=== PATIENT | male | born 1940 | race African-American/Black ===

== ENCOUNTER → 2021-04-02 | Outpatient (CLI) | payer MEDICARE ==
[~2021-04-02] MED LIST: BARIUM SULFATE 176 GM SUSP.RECON ONE; EZ-HD SUSPENSION(BARIUM SULFATE 340GM) PO ONE
== END | disposition home or self-care (01) ==
LOC: RAD 09:44
PROVIDERS: ATTEND Internal Medicine Gastroenterology
DX: K22.5 Diverticulum of esophagus, acquired (principal); R19.2 Visible peristalsis; R13.10 Dysphagia, unspecified
CPT/HCPCS: 74220

== ENCOUNTER 2021-08-06 18:41 | Inpatient (IN) | payer MEDICARE ==
[~2021-08-06] VITALS: Ht 170.2 cm; Wt 54.0 kg
[2021-08-06] MEDS: ACETAMINOPHEN 325MG TABLET PO ONE ×2 (19:45→22:37)
[2021-08-06] MEDS ORDERED: PIPERACILLIN/TAZOBACTAM 3.375GM/50ML PREMIX IV ONE (19:45)
[2021-08-06] MEDS ORDERED: PIPERACILLIN/TAZ 3.375G PREMIX 50 ML IV NR (20:00)
[2021-08-06 20:43] LABS: HEMATOCRIT. 38.8 % (42.0-52.0); HEMOGLOBIN. 12.8 g/dL (14.0-18.0); MEAN CORPUSCULAR HEMOGLOBIN 36.2 pg (28.0-32.0); MEAN CORPUSCULAR VOLUME 110.1 fL (80.0-94.0); MEAN PLATELET VOLUME 6.1 fl (7.4-10.4); PLATELET 319 x1000/uL (130-400); RED BLOOD CELL COUNT 3.52 mill/uL (4.7-6.1); RED CELL DISTRIBUTION WIDTH 14.5 % (11.6-14.6)
[2021-08-06 20:52] LABS: CHLORIDE 108 mEq/L (98-107)
[2021-08-06 21:02] LABS: INR 1.1; PARTIAL THROMBOPLASTIN TIME 33.6 sec (23.4-31.0); PROTHROMBIN TIME 11.4 sec (9.6-11.0)
[2021-08-06] MEDS ORDERED: HYDRALAZINE 20MG/ML VIAL IV NR (21:45)
[2021-08-06 22:47] LABS: PLATELET ESTIMATE NORMAL
[2021-08-06] MEDS ORDERED: ACETAMINOPHEN 325MG TABLET PO PRN (23:30)
[2021-08-06] MEDS ORDERED: ONDANSETRON HCL 4MG/2ML INJ IV PRN (23:30)
[2021-08-06] MEDS ORDERED: CLONIDINE 0.1MG TABLET PO PRN (23:30)
[2021-08-06] MEDS ORDERED: ACETAMINOPHEN 650MG/20.3ML UDC GT PRN (23:30)
[2021-08-06] MEDS ORDERED: DIPHENHYDRAMINE 50MG/ML VIAL IV PRN (23:30)
[2021-08-06] MEDS ORDERED: IPRATROPIUM/ALBUTEROL 0.5-3(2.5)MG/3ML NEB HHN PRN (23:30)
[2021-08-06] MEDS ORDERED: DEXT 5%/0.45% NACL 1000ML 1,000 ML IV SCH (23:30)
[2021-08-06] MEDS ORDERED: MORPHINE SULFATE 2 MG/ML CPJ (NOT FOR IM USE) IV PRN (23:30)
[2021-08-07] VITALS (9 sets, daily range): BP systolic 122–165; BP diastolic 59–76
[2021-08-07] MEDS: CARBAMAZEPINE 200MG TABLET PO SCH ×3 (00:19→21:18)
[2021-08-07] MEDS: PIPERACILLIN/TAZ 3.375G PREMIX 50 ML IV SCH ×2 (06:36→14:00)
[2021-08-07] MEDS: DEXT 5%/0.45% NACL 1000ML 1,000 ML IV SCH ×2 (09:49→21:18)
[2021-08-07] MEDS: TAMSULOSIN HCL 0.4MG SR CAPSULE PO SCH (09:49)
[2021-08-07] MEDS ORDERED: IODIXANOL 320MG/ML 100 ML BOTTLE IV ONE ×2 (10:44→13:14)
[2021-08-07] MEDS ORDERED: LIDOCAINE HCL 1% 20ML VIAL (Pyxis) INJ ONE (10:44)
[2021-08-07] MEDS ORDERED: FAMOTIDINE 20MG/2ML VIAL IV ONE (12:15)
[2021-08-07] MEDS ORDERED: DIPHENHYDRAMINE 50MG/ML VIAL ONE (12:15)
[2021-08-07] MEDS ORDERED: HYDROCORTISONE SOD SUCCINATE 250 MG/2 ML VIAL ONE (12:18)
[2021-08-07] MEDS ORDERED: ONDANSETRON HCL 4MG/2ML INJ ONE (12:26)
[2021-08-07] MEDS ORDERED: FENTANYL CITRATE/PF 50MCG/ML 2ML VIAL ONE (12:33)
[2021-08-07] MEDS ORDERED: MIDAZOLAM HCL 2 MG/2 ML VIAL ONE (12:34)
[2021-08-07] MEDS ORDERED: IOHEXOL-300 100 ML BOTTLE ONE (13:10)
[2021-08-07] MEDS ORDERED: HEPARIN SODIUM 1,000 UNIT/1ML VIAL IV ONE (13:24)
[2021-08-07] MEDS ORDERED: HYDRALAZINE 20MG/ML VIAL ONE (14:13)
[2021-08-07] MEDS ORDERED: ONDANSETRON HCL 4MG/2ML INJ IV PRN (14:15)
[2021-08-07] MEDS ORDERED: ACETAMINOPHEN 325MG TABLET PO PRN (14:15)
[2021-08-07] MEDS ORDERED: ATROPINE SULFATE 1MG/10ML SYR IV PRN (14:15)
[2021-08-07] MEDS ORDERED: CLOPIDOGREL 75MG TABLET ONE (14:17)
[2021-08-07] MEDS ORDERED: ASPIRIN 325MG TABLET ONE (14:18)
[2021-08-07] MEDS ORDERED: DOXA1TAB2 PO (16:06)
[2021-08-07] MEDS ORDERED: TAMSULOSIN (16:06)
[2021-08-07] MEDS ORDERED: DULO20CA18 PO (16:06)
[2021-08-07] MEDS ORDERED: FLUT1BLS3 IH (16:06)
[2021-08-07] MEDS ORDERED: MONT10TA32 PO (16:06)
[2021-08-07] MEDS ORDERED: FLUT16SP15 (16:06)
[2021-08-07] MEDS ORDERED: AMLO10TA80 PO (16:06)
[2021-08-07] MEDS ORDERED: ALBUTEROL (0.5%) 2.5MG/0.5ML NEB HHN PRN (16:15)
[2021-08-07] MEDS ORDERED: NALOXONE HCL 0.4MG/ML VIAL IV PRN (16:30)
[2021-08-07] MEDS ORDERED: BUDESONIDE 0.5MG/2ML NEB HHN SCH (17:00)
[2021-08-07] MEDS: PIPERACILLIN/TAZOBACTAM 3.375G in DEXT 5% WATER 50ML IV SCH ×2 (17:32→23:55)
[2021-08-07] MEDS: FAMOTIDINE 20MG TABLET PO SCH (21:17)
[2021-08-08] VITALS (13 sets, daily range): BP systolic 121–173; BP diastolic 58–84
[2021-08-08] MEDS: PIPERACILLIN/TAZOBACTAM 3.375G in DEXT 5% WATER 50ML IV SCH ×3 (05:22→17:15)
[2021-08-08 06:48] LABS: BASOPHILS % 0.4 % (0.0-2.0); EOSINOPHILS % 0.4 % (0.0-5.0); HEMATOCRIT. 36.4 % (42.0-52.0); LYMPHOCYTES % 16.4 % (20.0-50.0); MEAN CORPUSCULAR HEMOGLOBIN 36.4 pg (28.0-32.0); MEAN CORPUSCULAR VOLUME 110.2 fL (80.0-94.0); MEAN PLATELET VOLUME 6.8 fl (7.4-10.4); MONOCYTES % 11.1 % (2.0-8.0); NEUTROPHILS % 71.7 % (40.0-76.0); PLATELET 299 x1000/uL (130-400); RED CELL DISTRIBUTION WIDTH 14.3 % (11.6-14.6)
[2021-08-08] MEDS: IPRATROPIUM/ALBUTEROL 0.5-3(2.5)MG/3ML NEB HHN SCH ×3 (07:36→16:00)
[2021-08-08 07:41] LABS: CHLORIDE 108 mEq/L (98-107)
[2021-08-08] MEDS: FLUTICASONE PROPIONATE 50MCG/SPRAY BOTTLE BOTHNSTRLS SCH ×3 (09:00→21:49)
[2021-08-08] MEDS: CARBAMAZEPINE 200MG TABLET PO SCH ×2 (09:12→21:49)
[2021-08-08] MEDS: ASPIRIN 325MG TABLET PO SCH (09:12)
[2021-08-08] MEDS: CLOPIDOGREL 75MG TABLET PO SCH (09:12)
[2021-08-08] MEDS: TAMSULOSIN HCL 0.4MG SR CAPSULE PO SCH (09:12)
[2021-08-08] MEDS: DEXT 5%/0.45% NACL 1000ML 1,000 ML IV SCH ×2 (10:30→22:09)
[2021-08-08] MEDS: FAMOTIDINE 20MG TABLET PO SCH (21:49)
[2021-08-09] VITALS (8 sets, daily range): BP systolic 127–168; BP diastolic 58–91
[2021-08-09] MEDS: PIPERACILLIN/TAZOBACTAM 3.375G in DEXT 5% WATER 50ML IV SCH (06:08)
[2021-08-09] MEDS: IPRATROPIUM/ALBUTEROL 0.5-3(2.5)MG/3ML NEB HHN SCH (06:34)
[2021-08-09 06:53] LABS: BASOPHILS % 0.6 % (0.0-2.0); EOSINOPHILS % 2.3 % (0.0-5.0); HEMATOCRIT. 33.4 % (42.0-52.0); HEMOGLOBIN. 11.5 g/dL (14.0-18.0); LYMPHOCYTES % 15.7 % (20.0-50.0); MEAN CORPUSCULAR HEMOGLOBIN 37.4 pg (28.0-32.0); MEAN CORPUSCULAR VOLUME 109.2 fL (80.0-94.0); MEAN PLATELET VOLUME 6.8 fl (7.4-10.4); MONOCYTES % 12.6 % (2.0-8.0); NEUTROPHILS % 68.8 % (40.0-76.0); PLATELET 284 x1000/uL (130-400); RED BLOOD CELL COUNT 3.06 mill/uL (4.7-6.1); RED CELL DISTRIBUTION WIDTH 13.9 % (11.6-14.6)
[2021-08-09 07:09] LABS: CHLORIDE 110 mEq/L (98-107)
[2021-08-09] MEDS: FLUTICASONE PROPIONATE 50MCG/SPRAY BOTTLE BOTHNSTRLS SCH (09:00)
[2021-08-09] MEDS: TAMSULOSIN HCL 0.4MG SR CAPSULE PO SCH (09:00)
[2021-08-09] MEDS: CARBAMAZEPINE 200MG TABLET PO SCH (09:10)
[2021-08-09] MEDS: ASPIRIN 325MG TABLET PO SCH (09:10)
[2021-08-09] MEDS: CLOPIDOGREL 75MG TABLET PO SCH (09:10)
== END 2021-08-09 10:50 | disposition home or self-care (01) | DRG 253 ==
LOC: ER 18:41 → MICUSO 20:59 → 3WST 08-07 14:31
PROVIDERS: ADMIT Internal Medicine; ATTEND Internal Medicine
PROC: 047H3DZ Dilation of Right External Iliac Artery with Intraluminal Device, Percutaneous Approach (ICD-10-PCS; principal; 2021-08-07)
PROC: 047 Lower Arteries, Dilation (ICD-10-PCS; 2021-08-07)
PROC: 047P3ZZ Dilation of Right Anterior Tibial Artery, Percutaneous Approach (ICD-10-PCS; 2021-08-07)
PROC: B41F1ZZ Fluoroscopy of Right Lower Extremity Arteries using Low Osmolar Contrast (ICD-10-PCS; 2021-08-07)
DX: I70.221 Atherosclerosis of native arteries of extremities with rest pain, right leg (principal); D84.9 Immunodeficiency, unspecified; Z68.1 Body mass index [BMI] 19.9 or less, adult; E44.1 Mild protein-calorie malnutrition; N40.0 Benign prostatic hyperplasia without lower urinary tract symptoms; L97.519 Non-pressure chronic ulcer of other part of right foot with unspecified severity; R74.01 Elevation of levels of liver transaminase levels; I10 Essential (primary) hypertension; Z20.822 Contact with and (suspected) exposure to COVID-19; G50.0 Trigeminal neuralgia; F17.200 Nicotine dependence, unspecified, uncomplicated; K52.832 Lymphocytic colitis; Z79.02 Long term (current) use of antithrombotics/antiplatelets; Z79.82 Long term (current) use of aspirin; Z82.3 Family history of stroke; Z89.431 Acquired absence of right foot; Z91.041 Radiographic dye allergy status; Z91.040 Latex allergy status; J44.9 Chronic obstructive pulmonary disease, unspecified
CPT/HCPCS: 36415; 37221; 37226; 37228; 71045; 73630; 75710; 80048; 80053; 83880; 84484; 85025; 85347; 86850; 86900; 87426; 87635; 93005; 93306; 93923; 94640; 99285; C1725; C1726; C1769; C1876; C1887; C1893; C1894; J0360; J1200; J1644; J1720; J2250; J2270; J2405; J2543; J3010; J3490; J7060; J7626; Q9967

== ENCOUNTER 2021-10-22 10:31 | Inpatient (IN) | payer MEDICARE ==
[~2021-10-22] VITALS: Ht 180.3 cm; Wt 54.1 kg
[2021-10-22] VITALS (11 sets, daily range): BP systolic 117–150; BP diastolic 43–89
[~2021-10-22 10:31] MED LIST changes: +AMLO10TA80 PO; -BARIUM SULFATE 176 GM SUSP.RECON ONE; +DOXA1TAB2 PO; +DULO20CA18 PO; -EZ-HD SUSPENSION(BARIUM SULFATE 340GM) PO ONE; +FLUT16SP15; +FLUT1BLS3 IH; +MONT10TA32 PO; +TAMSULOSIN
[2021-10-22] MEDS ORDERED: CARB100T49 PO (13:22)
[2021-10-22] MEDS ORDERED: ALBU6.7H15 INH (13:22)
[2021-10-22 13:37] LABS: MEAN CORPUSCULAR HEMOGLOBIN 25.7 pg (28.0-32.0); MEAN CORPUSCULAR VOLUME 82.5 fL (80.0-94.0); MEAN PLATELET VOLUME 7.8 fl (7.4-10.4); PLATELET 253 x1000/uL (130-400); RED BLOOD CELL COUNT 2.36 mill/uL (4.7-6.1); RED CELL DISTRIBUTION WIDTH 20.2 % (11.6-14.6)
[2021-10-22 13:47] LABS: PARTIAL THROMBOPLASTIN TIME 27.9 sec (23.4-31.0)
[2021-10-22 13:50] LABS: HEMOGLOBIN. 6.1 g/dL (14.0-18.0)
[2021-10-22 13:51] LABS: HEMATOCRIT. 19.5 % (42.0-52.0)
[2021-10-22 13:58] LABS: CHLORIDE 110 mEq/L (98-107)
[2021-10-22 14:08] LABS: T4 FREE 0.72 ng/dL (0.76-1.46)
[2021-10-22 14:21] LABS: NUCLEATED RED BLOOD CELLS 1 /100 WBC
[2021-10-22 14:22] LABS: PLATELET ESTIMATE NORMAL
[2021-10-22] MEDS ORDERED: FUROSEMIDE 40MG/4ML VIAL IVP ONE (14:45)
[2021-10-22 15:27] LABS: TOTAL IRON BINDING CAPACITY 346 ug/dL (250-450)
[2021-10-22] MEDS ORDERED: INFLUENZA VACCINE 05/PF 0.5 ML SYRINGE IM ONE (16:00)
[2021-10-22] MEDS: MONTELUKAST SODIUM 10MG TABLET PO SCH (17:00)
[2021-10-22] MEDS: AMLODIPINE 2.5MG TABLET PO SCH (18:00)
[2021-10-22] MEDS: FLUTICASONE PROPIONATE 50MCG/SPRAY BOTTLE BOTHNSTRLS SCH (20:46)
[2021-10-23 00:22] VITALS: BP 156/76
[2021-10-23 03:47] LABS: HEMATOCRIT 31.1 % (42.0-52.0); HEMOGLOBIN 9.8 g/dL (14.0-18.0)
[2021-10-23 04:00] VITALS: BP_SYST 166; BP_SYST 168; BP_DIAS 58
[2021-10-23] MEDS: CARBAMAZEPINE 200MG TABLET PO SCH ×2 (05:26→17:10)
[2021-10-23] MEDS: AMLODIPINE 2.5MG TABLET PO SCH ×2 (05:27→17:10)
[2021-10-23 07:07] LABS: HEMATOCRIT. 29.6 % (42.0-52.0); HEMOGLOBIN. 9.4 g/dL (14.0-18.0); MEAN CORPUSCULAR HEMOGLOBIN 26.3 pg (28.0-32.0); MEAN CORPUSCULAR VOLUME 82.8 fL (80.0-94.0); PLATELET 235 x1000/uL (130-400); RED BLOOD CELL COUNT 3.57 mill/uL (4.7-6.1); RED CELL DISTRIBUTION WIDTH 17.4 % (11.6-14.6)
[2021-10-23 07:10] LABS: CHLORIDE 107 mEq/L (98-107)
[2021-10-23 08:00] VITALS: BP 125/76
[2021-10-23] MEDS ORDERED: AMLODIPINE 10MG TABLET PO SCH (09:00)
[2021-10-23] MEDS: SILVER SULFADIAZINE 1% CREAM 25GM TOP SCH (09:20)
[2021-10-23] MEDS: FLUTICASONE PROPIONATE 50MCG/SPRAY BOTTLE BOTHNSTRLS SCH ×2 (09:21→21:00)
[2021-10-23] MEDS: TAMSULOSIN HCL 0.4MG SR CAPSULE PO SCH (09:22)
[2021-10-23 09:40] LABS: BG BASE EXCESS -0.8 mmol/L (-2.0-2.0); BG CARBOXYHEMOGLOBIN 0.3 % (0.5-1.5); BG DEOXYHEMOGLOBIN 2.6 % (0.0-5.0); BG FRACTION INSPIRED OXYGEN 34; BG HCO3 ACT 24.9 mmol/L (22.0-26.0); BG METHEMOGLOBIN 0.2 % (0.0-1.5); BG OXYGEN SATURATION 97.4 % (92.0-98.5); BG OXYHEMOGLOBIN 96.9 % (94.0-97.0); BG PCO2 45.9 mmHg (35.0-45.0); BG PH 7.352 (7.350-7.450); BG PO2 102.5 mmHg (75.0-100.0); BG SAMPLE SITE RIGHT RADIAL; BG VENT MODE NASAL CANNULA
[2021-10-23] MEDS ORDERED: FUROSEMIDE 40MG/4ML VIAL IV SCH (09:45)
[2021-10-23 12:00] VITALS: BP 106/67
[2021-10-23 13:29] LABS: PLATELET ESTIMATE NORMAL
[2021-10-23 16:00] VITALS: BP 137/62
[2021-10-23] MEDS: MONTELUKAST SODIUM 10MG TABLET PO SCH (17:10)
[2021-10-23] MEDS: DOCUSATE SODIUM 100MG CAPSULE PO SCH (17:10)
[2021-10-23] MEDS: MULTIVITAMINS,THER W-MINERALS TABLET PO SCH (17:11)
[2021-10-23] MEDS: POLYETHYLENE GLYCOL 3350 (17GM) 1 DOSE PACK PO SCH (17:11)
[2021-10-23] MEDS: IRON SUCROSE COMPLEX 100 MG/5 ML ML IV SCH (17:11)
[2021-10-23 20:00] VITALS: BP 114/45
[2021-10-24] VITALS: BP 116/63
[2021-10-24 04:00] VITALS: BP 129/58
[2021-10-24] MEDS: AMLODIPINE 2.5MG TABLET PO SCH ×2 (06:00→17:43)
[2021-10-24] MEDS: CARBAMAZEPINE 200MG TABLET PO SCH ×2 (06:20→17:04)
[2021-10-24 06:55] LABS: BASOPHILS % 0.4 % (0.0-2.0); EOSINOPHILS % 9.2 % (0.0-5.0); HEMATOCRIT. 26.4 % (42.0-52.0); HEMOGLOBIN. 8.5 g/dL (14.0-18.0); LYMPHOCYTES % 14.1 % (20.0-50.0); MEAN CORPUSCULAR HEMOGLOBIN 26.4 pg (28.0-32.0); MEAN CORPUSCULAR VOLUME 82.2 fL (80.0-94.0); MONOCYTES % 9.5 % (2.0-8.0); NEUTROPHILS % 66.8 % (40.0-76.0); PLATELET 191 x1000/uL (130-400); RED BLOOD CELL COUNT 3.22 mill/uL (4.7-6.1); RED CELL DISTRIBUTION WIDTH 18.1 % (11.6-14.6)
[2021-10-24 07:27] LABS: CHLORIDE 109 mEq/L (98-107)
[2021-10-24 08:00] VITALS: BP 122/49
[2021-10-24] MEDS: DOCUSATE SODIUM 100MG CAPSULE PO SCH ×2 (09:00→17:00)
[2021-10-24] MEDS: POLYETHYLENE GLYCOL 3350 (17GM) 1 DOSE PACK PO SCH (09:00)
[2021-10-24] MEDS: MULTIVITAMINS,THER W-MINERALS TABLET PO SCH (09:44)
[2021-10-24] MEDS: FERROUS SULFATE 325MG TABLET PO SCH (09:44)
[2021-10-24] MEDS: TAMSULOSIN HCL 0.4MG SR CAPSULE PO SCH (09:44)
[2021-10-24] MEDS: SILVER SULFADIAZINE 1% CREAM 25GM TOP SCH (09:46)
[2021-10-24] MEDS ORDERED: FLUTICASONE PROPIONATE 50MCG/SPRAY BOTTLE BOTHNSTRLS SCH (11:00)
[2021-10-24] MEDS: PHENYLEPHRINE HCL 1% 15 ML NASAL SPRAY BOTHNSTRLS SCH ×2 (11:31→17:09)
[2021-10-24] MEDS: SODIUM CHLORIDE 45ML SPRAY NS SCH ×3 (11:31→21:10)
[2021-10-24 12:00] VITALS: BP 111/44
[2021-10-24 16:00] VITALS: BP 121/55
[2021-10-24] MEDS: MONTELUKAST SODIUM 10MG TABLET PO SCH (17:04)
[2021-10-24] MEDS: IRON SUCROSE COMPLEX 100 MG/5 ML ML IV SCH ×2 (17:04→17:53)
[2021-10-24 20:00] VITALS: BP 106/48
[2021-10-25] VITALS: BP 129/46
[2021-10-25] MEDS: SODIUM CHLORIDE 45ML SPRAY NS SCH ×6 (00:36→20:31)
[2021-10-25] MEDS: PHENYLEPHRINE HCL 1% 15 ML NASAL SPRAY BOTHNSTRLS SCH ×4 (00:36→17:25)
[2021-10-25 04:10] VITALS: BP 114/50
[2021-10-25] MEDS: AMLODIPINE 2.5MG TABLET PO SCH ×2 (06:00→17:25)
[2021-10-25 08:00] VITALS: BP 125/71
[2021-10-25] MEDS: POLYETHYLENE GLYCOL 3350 (17GM) 1 DOSE PACK PO SCH (09:00)
[2021-10-25] MEDS: DOCUSATE SODIUM 100MG CAPSULE PO SCH ×2 (09:00→17:00)
[2021-10-25] MEDS: CARBAMAZEPINE 200MG TABLET PO SCH ×2 (09:29→17:25)
[2021-10-25] MEDS: MULTIVITAMINS,THER W-MINERALS TABLET PO SCH (09:29)
[2021-10-25] MEDS: FERROUS SULFATE 325MG TABLET PO SCH (09:29)
[2021-10-25] MEDS: SILVER SULFADIAZINE 1% CREAM 25GM TOP SCH (09:30)
[2021-10-25] MEDS: TAMSULOSIN HCL 0.4MG SR CAPSULE PO SCH (09:30)
[2021-10-25] MEDS: FLUTICASONE PROPIONATE 50MCG/SPRAY BOTTLE BOTHNSTRLS SCH (09:31)
[2021-10-25 12:00] VITALS: BP 115/41
[2021-10-25 16:00] VITALS: BP 117/61
[2021-10-25] MEDS: MONTELUKAST SODIUM 10MG TABLET PO SCH (17:25)
[2021-10-25] MEDS: IRON SUCROSE COMPLEX 100 MG/5 ML ML IV SCH (17:26)
[2021-10-25] MEDS ORDERED: PREDNISONE 20MG TABLET PO NR (19:00)
[2021-10-25 20:00] VITALS: BP 149/59
[2021-10-26] VITALS: BP 134/40
[2021-10-26] MEDS: SODIUM CHLORIDE 45ML SPRAY NS SCH ×7 (00:19→23:18)
[2021-10-26] MEDS: PHENYLEPHRINE HCL 1% 15 ML NASAL SPRAY BOTHNSTRLS SCH ×5 (00:19→23:18)
[2021-10-26] MEDS ORDERED: PREDNISONE 20MG TABLET PO NR ×2 (01:00→07:00)
[2021-10-26 04:00] VITALS: BP 118/58
[2021-10-26] MEDS: AMLODIPINE 2.5MG TABLET PO SCH ×2 (06:00→18:00)
[2021-10-26 06:12] LABS: BASOPHILS % 0.1 % (0.0-2.0); EOSINOPHILS % 0.1 % (0.0-5.0); HEMATOCRIT. 28.1 % (42.0-52.0); HEMOGLOBIN. 8.8 g/dL (14.0-18.0); LYMPHOCYTES % 9.5 % (20.0-50.0); MEAN CORPUSCULAR HEMOGLOBIN 26.5 pg (28.0-32.0); MEAN PLATELET VOLUME 8.5 fl (7.4-10.4); MONOCYTES % 1.4 % (2.0-8.0); NEUTROPHILS % 88.9 % (40.0-76.0); PLATELET 205 x1000/uL (130-400)
[2021-10-26 06:16] LABS: CHLORIDE 105 mEq/L (98-107)
[2021-10-26] MEDS ORDERED: DIPHENHYDRAMINE 50MG CAPSULE PO NR (07:00)
[2021-10-26] MEDS ORDERED: BARIUM SULFATE(VOLUMEN) 450 ML ORAL.SUSP ONE (08:10)
[2021-10-26] MEDS: POLYETHYLENE GLYCOL 3350 (17GM) 1 DOSE PACK PO SCH (09:00)
[2021-10-26] MEDS: DOCUSATE SODIUM 100MG CAPSULE PO SCH ×2 (09:00→17:00)
[2021-10-26] MEDS ORDERED: IOHEXOL-350 100 ML BOTTLE ONE (09:09)
[2021-10-26 10:00] VITALS: BP 131/55
[2021-10-26] MEDS: FERROUS SULFATE 325MG TABLET PO SCH (11:16)
[2021-10-26] MEDS: CARBAMAZEPINE 200MG TABLET PO SCH ×2 (11:16→18:20)
[2021-10-26] MEDS: MULTIVITAMINS,THER W-MINERALS TABLET PO SCH (11:16)
[2021-10-26] MEDS: TAMSULOSIN HCL 0.4MG SR CAPSULE PO SCH (11:17)
[2021-10-26] MEDS: FLUTICASONE PROPIONATE 50MCG/SPRAY BOTTLE BOTHNSTRLS SCH (11:18)
[2021-10-26] MEDS: SILVER SULFADIAZINE 1% CREAM 25GM TOP SCH (11:25)
[2021-10-26 12:00] VITALS: BP 129/47
[2021-10-26 16:00] VITALS: BP 141/56
[2021-10-26] MEDS: IRON SUCROSE COMPLEX 100 MG/5 ML ML IV SCH (16:55)
[2021-10-26] MEDS: MONTELUKAST SODIUM 10MG TABLET PO SCH (18:20)
[2021-10-26 20:00] VITALS: BP 120/48
[2021-10-27] VITALS: BP 131/52
[2021-10-27 04:00] VITALS: BP 141/79
[2021-10-27] MEDS: SODIUM CHLORIDE 45ML SPRAY NS SCH ×2 (04:24→09:38)
[2021-10-27] MEDS: CARBAMAZEPINE 200MG TABLET PO SCH (05:40)
[2021-10-27] MEDS: PHENYLEPHRINE HCL 1% 15 ML NASAL SPRAY BOTHNSTRLS SCH (05:40)
[2021-10-27] MEDS: AMLODIPINE 2.5MG TABLET PO SCH ×2 (05:41→05:51)
[2021-10-27 05:52] LABS: BASOPHILS % 0.6 % (0.0-2.0); EOSINOPHILS % 3.1 % (0.0-5.0); HEMATOCRIT. 26.6 % (42.0-52.0); HEMOGLOBIN. 8.2 g/dL (14.0-18.0); LYMPHOCYTES % 19.2 % (20.0-50.0); MEAN CORPUSCULAR HEMOGLOBIN 26.5 pg (28.0-32.0); MEAN CORPUSCULAR VOLUME 86.4 fL (80.0-94.0); MEAN PLATELET VOLUME 8.6 fl (7.4-10.4); MONOCYTES % 9.7 % (2.0-8.0); NEUTROPHILS % 67.4 % (40.0-76.0); PLATELET 207 x1000/uL (130-400); RED BLOOD CELL COUNT 3.08 mill/uL (4.7-6.1); RED CELL DISTRIBUTION WIDTH 18.7 % (11.6-14.6)
[2021-10-27 06:11] LABS: CHLORIDE 107 mEq/L (98-107)
[2021-10-27 08:00] VITALS: BP 151/38
[2021-10-27] MEDS: TAMSULOSIN HCL 0.4MG SR CAPSULE PO SCH (09:00)
[2021-10-27] MEDS: POLYETHYLENE GLYCOL 3350 (17GM) 1 DOSE PACK PO SCH (09:00)
[2021-10-27] MEDS: DOCUSATE SODIUM 100MG CAPSULE PO SCH (09:00)
[2021-10-27] MEDS: MULTIVITAMINS,THER W-MINERALS TABLET PO SCH (09:00)
[2021-10-27] MEDS: FERROUS SULFATE 325MG TABLET PO SCH (09:37)
[2021-10-27] MEDS: FLUTICASONE PROPIONATE 50MCG/SPRAY BOTTLE BOTHNSTRLS SCH (09:39)
[2021-10-27] MEDS: SILVER SULFADIAZINE 1% CREAM 25GM TOP SCH (09:42)
[2021-10-27] MEDS ORDERED: ASCORBIC ACID 500 MG TABLET PO SCH (09:45)
[2021-10-27 10:52] VITALS: BP 151/58
[2021-10-27] MEDS ORDERED: FERROUS SULFATE 325MG TABLET PO SCH (17:00)
[2021-11-12] MEDS ORDERED: TAMS-11 PO (12:40)
[2021-11-12] MEDS ORDERED: CARB200T MT (16:42)
== END 2021-10-27 11:38 | disposition home or self-care (01) | DRG 812 ==
LOC: 7EST 11:01
PROVIDERS: ADMIT Specialist; ATTEND Specialist
PROC: 30233N1 Transfusion of Nonautologous Red Blood Cells into Peripheral Vein, Percutaneous Approach (ICD-10-PCS; principal; 2021-10-22)
DX: D50.9 Iron deficiency anemia, unspecified (principal); D84.9 Immunodeficiency, unspecified; Z68.1 Body mass index [BMI] 19.9 or less, adult; E44.1 Mild protein-calorie malnutrition; C61 Malignant neoplasm of prostate; I73.9 Peripheral vascular disease, unspecified; G50.0 Trigeminal neuralgia; R63.4 Abnormal weight loss; R91.1 Solitary pulmonary nodule; R33.9 Retention of urine, unspecified; I10 Essential (primary) hypertension; I27.21 Secondary pulmonary arterial hypertension; F17.210 Nicotine dependence, cigarettes, uncomplicated; J31.0 Chronic rhinitis; L27.0 Generalized skin eruption due to drugs and medicaments taken internally; L97.529 Non-pressure chronic ulcer of other part of left foot with unspecified severity; N40.0 Benign prostatic hyperplasia without lower urinary tract symptoms; T65.811A Toxic effect of latex, accidental (unintentional), initial encounter; T50.8X5A Adverse effect of diagnostic agents, initial encounter; Z20.822 Contact with and (suspected) exposure to COVID-19; J43.9 Emphysema, unspecified; K52.9 Noninfective gastroenteritis and colitis, unspecified; I49.3 Ventricular premature depolarization; K59.00 Constipation, unspecified; Z99.3 Dependence on wheelchair; Z82.3 Family history of stroke; Z82.49 Family history of ischemic heart disease and other diseases of the circulatory system; Z79.899 Other long term (current) drug therapy; Z79.82 Long term (current) use of aspirin; Z79.02 Long term (current) use of antithrombotics/antiplatelets; Z91.041 Radiographic dye allergy status; Y92.89 Other specified places as the place of occurrence of the external cause; J42 Unspecified chronic bronchitis; Z71.6 Tobacco abuse counseling; I34.0 Nonrheumatic mitral (valve) insufficiency; Q27.33 Arteriovenous malformation of digestive system vessel; K29.70 Gastritis, unspecified, without bleeding; K57.90 Diverticulosis of intestine, part unspecified, without perforation or abscess without bleeding
CPT/HCPCS: 36415; 36600; 71045; 74177; 80048; 80053; 82270; 82375; 82607; 82728; 82746; 82805; 83540; 83550; 83735; 84153; 84439; 84443; 84484; 85014; 85018; 85025; 85044; 86850; 86900; 86920; 87426; 93005; C1893; J1940; J7040; J7512; P9016; Q0163; Q9967; G0103

== ENCOUNTER → 2022-08-14 | Outpatient (CLI) | payer MEDICARE ==
[~2022-08-14] MED LIST changes: +ALBU6.7H15 INH; -AMLO10TA80 PO; +CARB100T49 PO; +CARB200T MT; +MONT-39 PO; -MONT10TA32 PO; +TAMS-11 PO; -TAMSULOSIN
[2022-08-14 11:49] LABS: BG BASE EXCESS 7.6 mmol/L (-2.0-2.0); BG CARBOXYHEMOGLOBIN 0.6 % (0.5-1.5); BG FRACTION INSPIRED OXYGEN 21; BG HCO3 ACT 31.9 mmol/L (22.0-26.0); BG METHEMOGLOBIN 0.3 % (0.0-1.5); BG OXYGEN SATURATION 91.9 % (92.0-98.5); BG OXYHEMOGLOBIN 91.1 % (94.0-97.0); BG PCO2 43.9 mmHg (35.0-45.0); BG PH 7.479 (7.350-7.450); BG PO2 59.2 mmHg (75.0-100.0); BG SAMPLE SITE RIGHT RADIAL; BG VENT MODE ROOM AIR
== END | disposition home or self-care (01) ==
LOC: LAB 11:11
PROVIDERS: ATTEND Specialist
DX: J96.10 Chronic respiratory failure, unspecified whether with hypoxia or hypercapnia (principal)
CPT/HCPCS: 36600; 82375; 82805

== ENCOUNTER 2022-10-23 10:07 | Inpatient (IN) | payer MEDICARE ==
[2022-10-23] VITALS (9 sets, daily range): BP systolic 99–152; BP diastolic 50–75
[~2022-10-23] VITALS: Ht 172.7 cm; Wt 59.9 kg
[2022-10-23] MEDS ORDERED: IPRATROPIUM BROMIDE (0.02%) 0.5MG/2.5ML NEB HHN STA (10:34)
[2022-10-23] MEDS ORDERED: METHYLPREDNISOLONE SOD SUCC 125 MG/2 ML VIAL IV STA (10:34)
[2022-10-23] MEDS ORDERED: LIDOCAINE HCL/PF 1% 2ML VIAL ONE (10:34)
[2022-10-23] MEDS ORDERED: ALBUTEROL (0.083%) 2.5MG/3ML NEB HHN STA (10:34)
[2022-10-23] MEDS ORDERED: FUROSEMIDE 40MG/4ML VIAL IV ONE (10:45)
[2022-10-23 11:36] LABS: BASOPHILS % 1.3 % (0.0-2.0); EOSINOPHILS % 4.1 % (0.0-5.0); LYMPHOCYTES % 20.3 % (20.0-50.0); MEAN CORPUSCULAR HEMOGLOBIN 24.2 pg (28.0-32.0); MEAN CORPUSCULAR VOLUME 81.1 fL (80.0-94.0); MEAN PLATELET VOLUME 7.8 fl (7.4-10.4); MONOCYTES % 8.5 % (2.0-8.0); NEUTROPHILS % 65.8 % (40.0-76.0); PLATELET 275 x1000/uL (130-400); RED BLOOD CELL COUNT 2.76 mill/uL (4.7-6.1); RED CELL DISTRIBUTION WIDTH 26.3 % (11.6-14.6)
[2022-10-23 11:38] LABS: CHLORIDE 101 mEq/L (98-107); HEMATOCRIT. 22.4 % (42.0-52.0); HEMOGLOBIN. 6.7 g/dL (14.0-18.0)
[2022-10-23 11:42] LABS: BG BASE EXCESS 5.5 mmol/L (-2.0-2.0); BG CARBOXYHEMOGLOBIN 2.1 % (0.5-1.5); BG DEOXYHEMOGLOBIN 0.1 % (0.0-5.0); BG FRACTION INSPIRED OXYGEN 60; BG HCO3 ACT 32.9 mmol/L (22.0-26.0); BG METHEMOGLOBIN 0.5 % (0.0-1.5); BG OXYGEN SATURATION 99.9 % (92.0-98.5); BG OXYHEMOGLOBIN 97.3 % (94.0-97.0); BG PCO2 70.2 mmHg (35.0-45.0); BG PH 7.289 (7.350-7.450); BG PO2 195.7 mmHg (75.0-100.0); BG SAMPLE SITE LEFT RADIAL; BG TOTAL HEMOGLOBIN 7.3 g/dL (12.0-18.0); BG VENT MODE HHN TX
[2022-10-23 11:50] LABS: INR 1.1; PARTIAL THROMBOPLASTIN TIME 30.8 sec (23.4-31.0); PROTHROMBIN TIME 11.8 sec (9.6-11.0)
[2022-10-23] MEDS ORDERED: AZITHROMYCIN 500MG/250ML 250 ML IV ONE (12:00)
[2022-10-23] MEDS ORDERED: CEFTRIAXONE 1GM PREMIX 50 ML IV ONE (12:00)
[2022-10-23] MEDS ORDERED: DIPHENHYDRAMINE 50MG/ML VIAL IV PRN (12:30)
[2022-10-23] MEDS ORDERED: ACETAMINOPHEN 325MG TABLET PO PRN (12:30)
[2022-10-23] MEDS ORDERED: FUROSEMIDE 40MG/4ML VIAL IVP NR ×2 (12:30→13:30)
[2022-10-23] MEDS ORDERED: ONDANSETRON HCL 4MG/2ML INJ IV PRN (12:30)
[2022-10-23] MEDS ORDERED: CLONIDINE 0.1MG TABLET PO PRN (12:30)
[2022-10-23] MEDS ORDERED: IPRATROPIUM/ALBUTEROL 0.5-3(2.5)MG/3ML NEB HHN PRN (12:30)
[2022-10-23 13:04] LABS: PLATELET ESTIMATE NORMAL
[2022-10-23] MEDS ORDERED: AZITHROMYCIN 500 MG in DEXT 5% WATER 250 ML IV SCH (14:00)
[2022-10-23] MEDS ORDERED: PANTOPRAZOLE SODIUM 40 MG/VIAL IV SCH (14:00)
[2022-10-23 16:04] LABS: TOTAL IRON BINDING CAPACITY 346 ug/dL (250-450)
[2022-10-23] MEDS ORDERED: FUROSEMIDE 40MG/4ML VIAL IV SCH (17:00)
[2022-10-23] MEDS: IPRATROPIUM/ALBUTEROL 0.5-3(2.5)MG/3ML NEB HHN SCH ×2 (17:55→21:51)
[2022-10-23] MEDS: METHYLPREDNISOLONE SOD SUCC 40 MG/ML VIAL IV SCH (18:50)
[2022-10-23] MEDS: PANTOPRAZOLE SODIUM 40 MG/VIAL IV SCH (18:50)
[2022-10-23 19:05] LABS: FOLIC ACID (FOLATE) SERUM 15.5 ng/mL (>5.38)
[2022-10-23] MEDS: FUROSEMIDE 40MG/4ML VIAL IVP SCH (20:37)
[2022-10-23] MEDS: CARVEDILOL 6.25 MG TABLET PO SCH (20:37)
[2022-10-24] VITALS (15 sets, daily range): BP systolic 100–139; BP diastolic 45–75
[2022-10-24] MEDS: IPRATROPIUM/ALBUTEROL 0.5-3(2.5)MG/3ML NEB HHN SCH ×4 (01:42→20:42)
[2022-10-24] MEDS: AZITHROMYCIN 500 MG in DEXT 5% WATER 250 ML IV SCH ×2 (02:36→20:29)
[2022-10-24] MEDS: PANTOPRAZOLE SODIUM 40 MG/VIAL IV SCH ×2 (03:56→16:51)
[2022-10-24 06:36] LABS: HEMATOCRIT. 23.3 % (42.0-52.0); HEMOGLOBIN. 7.3 g/dL (14.0-18.0); MEAN CORPUSCULAR HEMOGLOBIN 25.3 pg (28.0-32.0); MEAN CORPUSCULAR VOLUME 80.9 fL (80.0-94.0); PLATELET 222 x1000/uL (130-400); RED BLOOD CELL COUNT 2.88 mill/uL (4.7-6.1); RED CELL DISTRIBUTION WIDTH 23.5 % (11.6-14.6)
[2022-10-24 07:00] LABS: CHLORIDE 100 mEq/L (98-107)
[2022-10-24 07:10] LABS: PHOSPHORUS 4.1 mg/dL (2.5-4.9)
[2022-10-24 08:06] LABS: BG BASE EXCESS 8.4 mmol/L (-2.0-2.0); BG CARBOXYHEMOGLOBIN 0.7 % (0.5-1.5); BG DEOXYHEMOGLOBIN 0.5 % (0.0-5.0); BG HCO3 ACT 35.2 mmol/L (22.0-26.0); BG METHEMOGLOBIN 0.5 % (0.0-1.5); BG OXYGEN SATURATION 99.5 % (92.0-98.5); BG OXYHEMOGLOBIN 98.3 % (94.0-97.0); BG PCO2 66.2 mmHg (35.0-45.0); BG PH 7.344 (7.350-7.450); BG PO2 169.4 mmHg (75.0-100.0); BG TOTAL HEMOGLOBIN 7.6 g/dL (12.0-18.0); BG VENT MODE MASK - BIPAP
[2022-10-24 08:44] LABS: NUCLEATED RED BLOOD CELLS 1 /100 WBC; PLATELET ESTIMATE NORMAL
[2022-10-24] MEDS: CARVEDILOL 6.25 MG TABLET PO SCH ×2 (10:17→20:30)
[2022-10-24] MEDS: FUROSEMIDE 40MG/4ML VIAL IVP SCH ×2 (10:18→20:29)
[2022-10-24] MEDS: METHYLPREDNISOLONE SOD SUCC 40 MG/ML VIAL IV SCH ×2 (10:18→16:51)
[2022-10-24] MEDS ORDERED: LIDOCAINE HCL/PF 1% 2ML VIAL ONE (11:30)
[2022-10-24] MEDS ORDERED: CEFTRIAXONE 1GM PREMIX 50 ML IV SCH (12:00)
[2022-10-24] MEDS: CEFTRIAXONE 1GM PREMIX 50 ML IV SCH (12:46)
[2022-10-25] VITALS (22 sets, daily range): BP systolic 110–152; BP diastolic 49–88
[2022-10-25] MEDS: IPRATROPIUM/ALBUTEROL 0.5-3(2.5)MG/3ML NEB HHN SCH ×4 (02:28→21:20)
[2022-10-25] MEDS: PANTOPRAZOLE SODIUM 40 MG/VIAL IV SCH ×2 (04:00→16:00)
[2022-10-25 06:04] LABS: HEMATOCRIT. 26.3 % (42.0-52.0); HEMOGLOBIN. 8.3 g/dL (14.0-18.0); MEAN CORPUSCULAR VOLUME 82.6 fL (80.0-94.0); MEAN PLATELET VOLUME 8.2 fl (7.4-10.4); PLATELET 237 x1000/uL (130-400); RED BLOOD CELL COUNT 3.19 mill/uL (4.7-6.1); RED CELL DISTRIBUTION WIDTH 24.1 % (11.6-14.6)
[2022-10-25 08:38] LABS: BG BASE EXCESS 13.7 mmol/L (-2.0-2.0); BG CARBOXYHEMOGLOBIN 0.4 % (0.5-1.5); BG DEOXYHEMOGLOBIN 1.4 % (0.0-5.0); BG FRACTION INSPIRED OXYGEN 50; BG HCO3 ACT 40.6 mmol/L (22.0-26.0); BG METHEMOGLOBIN 0.3 % (0.0-1.5); BG OXYGEN SATURATION 98.6 % (92.0-98.5); BG OXYHEMOGLOBIN 97.9 % (94.0-97.0); BG PCO2 70.6 mmHg (35.0-45.0); BG PH 7.378 (7.350-7.450); BG PO2 127.5 mmHg (75.0-100.0); BG SAMPLE SITE LEFT RADIAL; BG TOTAL HEMOGLOBIN 7.9 g/dL (12.0-18.0); BG TOTAL RESPIRATORY RATE 25 b/min; BG VENT MODE MASK - BIPAP
[2022-10-25] MEDS: CARVEDILOL 6.25 MG TABLET PO SCH ×2 (08:48→21:15)
[2022-10-25] MEDS: FUROSEMIDE 40MG/4ML VIAL IVP SCH ×2 (08:49→21:15)
[2022-10-25] MEDS: METHYLPREDNISOLONE SOD SUCC 40 MG/ML VIAL IV SCH ×2 (08:49→16:00)
[2022-10-25 09:31] LABS: CHLORIDE 101 mEq/L (98-107)
[2022-10-25 10:01] LABS: PLATELET ESTIMATE NORMAL
[2022-10-25] MEDS: CEFTRIAXONE 1GM PREMIX 50 ML IV SCH (12:49)
[2022-10-25] MEDS: AZITHROMYCIN 500 MG in DEXT 5% WATER 250 ML IV SCH (21:15)
[2022-10-26] VITALS (15 sets, daily range): BP systolic 91–134; BP diastolic 54–76
[2022-10-26] MEDS: IPRATROPIUM/ALBUTEROL 0.5-3(2.5)MG/3ML NEB HHN SCH ×3 (02:54→20:30)
[2022-10-26] MEDS: PANTOPRAZOLE SODIUM 40 MG/VIAL IV SCH ×2 (04:28→16:00)
[2022-10-26 04:39] LABS: HEMATOCRIT. 23.9 % (42.0-52.0); HEMOGLOBIN. 7.4 g/dL (14.0-18.0); MEAN CORPUSCULAR HEMOGLOBIN 25.6 pg (28.0-32.0); MEAN CORPUSCULAR VOLUME 82.2 fL (80.0-94.0); MEAN PLATELET VOLUME 7.8 fl (7.4-10.4); PLATELET 233 x1000/uL (130-400); RED BLOOD CELL COUNT 2.91 mill/uL (4.7-6.1); RED CELL DISTRIBUTION WIDTH 24.8 % (11.6-14.6)
[2022-10-26 04:50] LABS: CHLORIDE 98 mEq/L (98-107)
[2022-10-26 05:01] LABS: PHOSPHORUS 2.9 mg/dL (2.5-4.9)
[2022-10-26] MEDS ORDERED: MAGNESIUM 1 G PREMIX 100 ML IV NR (07:00)
[2022-10-26 08:24] LABS: BG BASE EXCESS 16.1 mmol/L (-2.0-2.0); BG CARBOXYHEMOGLOBIN 0.1 % (0.5-1.5); BG DEOXYHEMOGLOBIN 3.4 % (0.0-5.0); BG FRACTION INSPIRED OXYGEN 44; BG HCO3 ACT 43.2 mmol/L (22.0-26.0); BG METHEMOGLOBIN 1.2 % (0.0-1.5); BG OXYGEN SATURATION 96.6 % (92.0-98.5); BG OXYHEMOGLOBIN 95.3 % (94.0-97.0); BG PCO2 73.1 mmHg (35.0-45.0); BG PH 7.389 (7.350-7.450); BG TOTAL HEMOGLOBIN 8.2 g/dL (12.0-18.0); BG VENT MODE NASAL CANNULA
[2022-10-26] MEDS: FUROSEMIDE 40MG/4ML VIAL IVP SCH ×2 (08:34→22:26)
[2022-10-26] MEDS: CARVEDILOL 6.25 MG TABLET PO SCH ×2 (08:35→22:26)
[2022-10-26] MEDS: METHYLPREDNISOLONE SOD SUCC 40 MG/ML VIAL IV SCH (08:35)
[2022-10-26 11:56] LABS: PLATELET ESTIMATE NORMAL
[2022-10-26] MEDS: CEFTRIAXONE 1GM PREMIX 50 ML IV SCH (12:00)
[2022-10-26] MEDS: IRON SUCROSE COMPLEX 100 MG/5 ML ML IV SCH (12:30)
[2022-10-26] MEDS ORDERED: ALBUTEROL (0.083%) 2.5MG/3ML NEB HHN PRN (14:00)
[2022-10-26] MEDS ORDERED: IPRATROPIUM BROMIDE (0.02%) 0.5MG/2.5ML NEB HHN SCH (14:00)
[2022-10-26] MEDS ORDERED: IPRATROPIUM BROMIDE (0.02%) 0.5MG/2.5ML NEB HHN PRN (14:00)
[2022-10-26] MEDS ORDERED: ALBUTEROL (0.083%) 2.5MG/3ML NEB HHN SCH (14:00)
[2022-10-26] MEDS ORDERED: THROAT LOZENGES-BENZOCAINE/MENTH/CETYLPYRD CL LOZENGES MM PRN (14:30)
[2022-10-26] MEDS ORDERED: IPRATROPIUM/ALBUTEROL 0.5-3(2.5)MG/3ML NEB HHN PRN (15:30)
[2022-10-26] MEDS ORDERED: THROAT LOZENGES-BENZOCAINE/MENTH/CETYLPYRD CL LOZENGES MM SCH (16:00)
[2022-10-26] MEDS ORDERED: METHYLPREDNISOLONE SOD SUCC 40 MG/ML VIAL IV SCH (17:00)
[2022-10-26] MEDS: THEOPHYLLINE ANHYDROUS 80 MG/15 ML 120ML PO SCH (18:26)
[2022-10-26] MEDS: NITROGLYCERIN OINT 1GM/INCH UDPKT TD SCH (18:27)
[2022-10-26] MEDS: AZITHROMYCIN 500 MG in DEXT 5% WATER 250 ML IV SCH (22:25)
[2022-10-27] VITALS (12 sets, daily range): BP systolic 98–143; BP diastolic 58–80
[2022-10-27] MEDS: METHYLPREDNISOLONE SOD SUCC 40 MG/ML VIAL IV SCH ×4 (00:03→21:02)
[2022-10-27] MEDS: THEOPHYLLINE ANHYDROUS 80 MG/15 ML 120ML PO SCH ×2 (00:04→05:19)
[2022-10-27] MEDS: IPRATROPIUM/ALBUTEROL 0.5-3(2.5)MG/3ML NEB HHN SCH ×4 (01:53→20:45)
[2022-10-27] MEDS: PANTOPRAZOLE SODIUM 40 MG/VIAL IV SCH ×2 (05:19→17:27)
[2022-10-27] MEDS: NITROGLYCERIN OINT 1GM/INCH UDPKT TD SCH ×2 (05:19→17:27)
[2022-10-27 07:08] LABS: CHLORIDE 93 mEq/L (98-107)
[2022-10-27 07:12] LABS: BASOPHILS % 0.4 % (0.0-2.0); EOSINOPHILS % 0.2 % (0.0-5.0); HEMATOCRIT. 24.5 % (42.0-52.0); HEMOGLOBIN. 7.8 g/dL (14.0-18.0); MEAN CORPUSCULAR HEMOGLOBIN 25.6 pg (28.0-32.0); MEAN CORPUSCULAR VOLUME 80.3 fL (80.0-94.0); MONOCYTES % 3.8 % (2.0-8.0); NEUTROPHILS % 87.6 % (40.0-76.0); PLATELET 240 x1000/uL (130-400); RED BLOOD CELL COUNT 3.05 mill/uL (4.7-6.1); RED CELL DISTRIBUTION WIDTH 25.1 % (11.6-14.6)
[2022-10-27 07:19] LABS: PHOSPHORUS 2.4 mg/dL (2.5-4.9)
[2022-10-27 09:05] LABS: BG BASE EXCESS 12.9 mmol/L (-2.0-2.0); BG CARBOXYHEMOGLOBIN 0.3 % (0.5-1.5); BG DEOXYHEMOGLOBIN 4.3 % (0.0-5.0); BG FRACTION INSPIRED OXYGEN 40; BG HCO3 ACT 38.7 mmol/L (22.0-26.0); BG METHEMOGLOBIN 0.2 % (0.0-1.5); BG OXYGEN SATURATION 95.7 % (92.0-98.5); BG OXYHEMOGLOBIN 95.2 % (94.0-97.0); BG PCO2 58.6 mmHg (35.0-45.0); BG PH 7.438 (7.350-7.450); BG SAMPLE SITE RIGHT RADIAL; BG TOTAL HEMOGLOBIN 8.9 g/dL (12.0-18.0); BG VENT MODE MASK - BIPAP
[2022-10-27] MEDS: FUROSEMIDE 40MG/4ML VIAL IVP SCH ×2 (09:11→21:01)
[2022-10-27] MEDS: CARVEDILOL 6.25 MG TABLET PO SCH (09:11)
[2022-10-27] MEDS ORDERED: BUDESONIDE 0.25MG/2ML NEB HHN SCH (12:30)
[2022-10-27] MEDS: BUDESONIDE 0.5MG/2ML NEB HHN SCH ×2 (13:38→20:46)
[2022-10-27] MEDS: CEFTRIAXONE 1GM PREMIX 50 ML IV SCH (14:01)
[2022-10-27] MEDS: IRON SUCROSE COMPLEX 100 MG/5 ML ML IV SCH (14:02)
[2022-10-27] MEDS: MONTELUKAST SODIUM 10MG TABLET PO SCH (17:27)
[2022-10-27] MEDS: CARVEDILOL 3.125 MG TABLET PO SCH (21:01)
[2022-10-27] MEDS: AZITHROMYCIN 500 MG in DEXT 5% WATER 250 ML IV SCH (21:01)
[2022-10-28] VITALS (12 sets, daily range): BP systolic 110–137; BP diastolic 60–80
[2022-10-28] MEDS ORDERED: LIDOCAINE HCL/PF 1% 2ML VIAL ONE (05:00)
[2022-10-28] MEDS: PANTOPRAZOLE SODIUM 40 MG/VIAL IV SCH ×2 (05:27→18:01)
[2022-10-28] MEDS: METHYLPREDNISOLONE SOD SUCC 40 MG/ML VIAL IV SCH ×3 (05:27→20:29)
[2022-10-28] MEDS: NITROGLYCERIN OINT 1GM/INCH UDPKT TD SCH ×2 (05:28→18:01)
[2022-10-28] MEDS: FUROSEMIDE 40MG/4ML VIAL IVP SCH ×2 (08:22→20:30)
[2022-10-28] MEDS: CARVEDILOL 3.125 MG TABLET PO SCH ×2 (08:22→20:30)
[2022-10-28 09:21] LABS: BG CARBOXYHEMOGLOBIN 0.8 % (0.5-1.5); BG DEOXYHEMOGLOBIN 10.8 % (0.0-5.0); BG FRACTION INSPIRED OXYGEN 36; BG METHEMOGLOBIN 0.3 % (0.0-1.5); BG OXYGEN SATURATION 89.1 % (92.0-98.5); BG OXYHEMOGLOBIN 88.1 % (94.0-97.0); BG PCO2 58.8 mmHg (35.0-45.0); BG PH 7.439 (7.350-7.450); BG SAMPLE SITE RIGHT RADIAL; BG TOTAL HEMOGLOBIN 9.4 g/dL (12.0-18.0); BG VENT MODE NASAL CANNULA
[2022-10-28] MEDS: IPRATROPIUM/ALBUTEROL 0.5-3(2.5)MG/3ML NEB HHN SCH ×3 (09:52→21:12)
[2022-10-28 09:53] LABS: HEMOGLOBIN. 8.5 g/dL (14.0-18.0); MEAN CORPUSCULAR HEMOGLOBIN 25.7 pg (28.0-32.0); MEAN CORPUSCULAR VOLUME 81.6 fL (80.0-94.0); MEAN PLATELET VOLUME 7.8 fl (7.4-10.4); PLATELET 249 x1000/uL (130-400); RED BLOOD CELL COUNT 3.31 mill/uL (4.7-6.1); RED CELL DISTRIBUTION WIDTH 25.2 % (11.6-14.6)
[2022-10-28] MEDS: BUDESONIDE 0.5MG/2ML NEB HHN SCH ×2 (09:53→20:43)
[2022-10-28 11:06] LABS: CHLORIDE 91 mEq/L (98-107)
[2022-10-28 11:17] LABS: PHOSPHORUS 2.3 mg/dL (2.5-4.9)
[2022-10-28] MEDS ORDERED: GUAIFENESIN-DM 200MG-20MG/10ML UDC PO PRN (11:45)
[2022-10-28] MEDS: CEFTRIAXONE 1GM PREMIX 50 ML IV SCH (13:47)
[2022-10-28] MEDS: IRON SUCROSE COMPLEX 100 MG/5 ML ML IV SCH (13:48)
[2022-10-28 14:43] LABS: NUCLEATED RED BLOOD CELLS 1 /100 WBC; PLATELET ESTIMATE NORMAL
[2022-10-28] MEDS: MONTELUKAST SODIUM 10MG TABLET PO SCH (18:00)
[2022-10-29] VITALS (12 sets, daily range): BP systolic 96–158; BP diastolic 43–93
[2022-10-29] MEDS: IPRATROPIUM/ALBUTEROL 0.5-3(2.5)MG/3ML NEB HHN SCH ×4 (02:24→20:35)
[2022-10-29] MEDS ORDERED: LIDOCAINE HCL/PF 1% 2ML VIAL ONE (05:00)
[2022-10-29] MEDS: NITROGLYCERIN OINT 1GM/INCH UDPKT TD SCH ×2 (05:27→18:34)
[2022-10-29] MEDS: METHYLPREDNISOLONE SOD SUCC 40 MG/ML VIAL IV SCH ×3 (05:27→20:39)
[2022-10-29] MEDS: PANTOPRAZOLE SODIUM 40 MG/VIAL IV SCH ×2 (05:27→18:34)
[2022-10-29 07:13] LABS: HEMATOCRIT. 26.3 % (42.0-52.0); HEMOGLOBIN. 8.2 g/dL (14.0-18.0); MEAN CORPUSCULAR HEMOGLOBIN 25.4 pg (28.0-32.0); MEAN CORPUSCULAR VOLUME 81.4 fL (80.0-94.0); MEAN PLATELET VOLUME 7.9 fl (7.4-10.4); PLATELET 253 x1000/uL (130-400); RED BLOOD CELL COUNT 3.24 mill/uL (4.7-6.1); RED CELL DISTRIBUTION WIDTH 25.4 % (11.6-14.6)
[2022-10-29 07:30] LABS: CHLORIDE 91 mEq/L (98-107)
[2022-10-29 07:41] LABS: INR 1.2; PARTIAL THROMBOPLASTIN TIME 28.9 sec (23.4-31.0); PROTHROMBIN TIME 12.7 sec (9.6-11.0)
[2022-10-29 07:43] LABS: PHOSPHORUS 2.5 mg/dL (2.5-4.9)
[2022-10-29] MEDS: CARVEDILOL 3.125 MG TABLET PO SCH ×2 (08:47→20:39)
[2022-10-29] MEDS: FUROSEMIDE 40MG/4ML VIAL IVP SCH ×2 (08:47→20:38)
[2022-10-29 09:25] LABS: BG BASE EXCESS 14.4 mmol/L (-2.0-2.0); BG CARBOXYHEMOGLOBIN 0.4 % (0.5-1.5); BG DEOXYHEMOGLOBIN 9.1 % (0.0-5.0); BG FRACTION INSPIRED OXYGEN 36; BG HCO3 ACT 39.4 mmol/L (22.0-26.0); BG METHEMOGLOBIN 0.1 % (0.0-1.5); BG OXYGEN SATURATION 90.9 % (92.0-98.5); BG OXYHEMOGLOBIN 90.4 % (94.0-97.0); BG PCO2 52.2 mmHg (35.0-45.0); BG PH 7.496 (7.350-7.450); BG PO2 60.1 mmHg (75.0-100.0); BG SAMPLE SITE LEFT RADIAL; BG TOTAL HEMOGLOBIN 9.6 g/dL (12.0-18.0); BG VENT MODE NASAL CANNULA
[2022-10-29] MEDS: BUDESONIDE 0.5MG/2ML NEB HHN SCH ×2 (09:31→20:35)
[2022-10-29 13:56] LABS: NUCLEATED RED BLOOD CELLS 1 /100 WBC; PLATELET ESTIMATE NORMAL
[2022-10-29] MEDS ORDERED: ACETAZOLAMIDE SODIUM 500MG/VIAL IV SCH (14:30)
[2022-10-29] MEDS: MONTELUKAST SODIUM 10MG TABLET PO SCH (18:34)
[2022-10-30] VITALS (13 sets, daily range): BP systolic 112–155; BP diastolic 49–82
[2022-10-30] MEDS: IPRATROPIUM/ALBUTEROL 0.5-3(2.5)MG/3ML NEB HHN SCH ×4 (02:07→21:09)
[2022-10-30] MEDS: METHYLPREDNISOLONE SOD SUCC 40 MG/ML VIAL IV SCH ×3 (06:08→21:10)
[2022-10-30] MEDS: NITROGLYCERIN OINT 1GM/INCH UDPKT TD SCH ×4 (06:09→18:13)
[2022-10-30] MEDS: PANTOPRAZOLE SODIUM 40 MG/VIAL IV SCH ×2 (06:09→18:13)
[2022-10-30 07:14] LABS: HEMATOCRIT. 28.4 % (42.0-52.0); HEMOGLOBIN. 8.7 g/dL (14.0-18.0); MEAN CORPUSCULAR HEMOGLOBIN 25.6 pg (28.0-32.0); MEAN CORPUSCULAR VOLUME 83.4 fL (80.0-94.0); PLATELET 259 x1000/uL (130-400); RED BLOOD CELL COUNT 3.41 mill/uL (4.7-6.1); RED CELL DISTRIBUTION WIDTH 25.9 % (11.6-14.6)
[2022-10-30 07:38] LABS: CHLORIDE 91 mEq/L (98-107)
[2022-10-30 07:48] LABS: PHOSPHORUS 2.9 mg/dL (2.5-4.9)
[2022-10-30 08:37] LABS: BG CARBOXYHEMOGLOBIN 0.2 % (0.5-1.5); BG DEOXYHEMOGLOBIN 6.9 % (0.0-5.0); BG FRACTION INSPIRED OXYGEN 28; BG HCO3 ACT 39.7 mmol/L (22.0-26.0); BG METHEMOGLOBIN 0.3 % (0.0-1.5); BG OXYGEN SATURATION 93.1 % (92.0-98.5); BG OXYHEMOGLOBIN 92.6 % (94.0-97.0); BG PCO2 57.1 mmHg (35.0-45.0); BG PO2 65.1 mmHg (75.0-100.0); BG SAMPLE SITE RIGHT BRACHIAL; BG TOTAL HEMOGLOBIN 9.6 g/dL (12.0-18.0); BG VENT MODE NASAL CANNULA
[2022-10-30] MEDS: CARVEDILOL 3.125 MG TABLET PO SCH ×2 (09:00→21:10)
[2022-10-30] MEDS: BUDESONIDE 0.5MG/2ML NEB HHN SCH (10:16)
[2022-10-30] MEDS ORDERED: ACETAZOLAMIDE SODIUM 500MG/VIAL IV NR (13:00)
[2022-10-30 14:39] LABS: PLATELET ESTIMATE NORMAL
[2022-10-30] MEDS: MONTELUKAST SODIUM 10MG TABLET PO SCH (18:13)
[2022-10-30] MEDS: FUROSEMIDE 40MG TABLET PO SCH (21:10)
[2022-10-31] VITALS (12 sets, daily range): BP systolic 109–145; BP diastolic 53–82
[2022-10-31] MEDS: NITROGLYCERIN OINT 1GM/INCH UDPKT TD SCH ×4 (00:27→18:14)
[2022-10-31] MEDS: IPRATROPIUM/ALBUTEROL 0.5-3(2.5)MG/3ML NEB HHN SCH ×4 (02:18→20:43)
[2022-10-31] MEDS: METHYLPREDNISOLONE SOD SUCC 40 MG/ML VIAL IV SCH ×3 (05:21→21:48)
[2022-10-31] MEDS: PANTOPRAZOLE SODIUM 40 MG/VIAL IV SCH ×2 (05:21→18:14)
[2022-10-31 07:22] LABS: HEMATOCRIT. 28.6 % (42.0-52.0); HEMOGLOBIN. 8.9 g/dL (14.0-18.0); MEAN CORPUSCULAR HEMOGLOBIN 26.4 pg (28.0-32.0); MEAN CORPUSCULAR VOLUME 84.4 fL (80.0-94.0); MEAN PLATELET VOLUME 8.2 fl (7.4-10.4); PLATELET 237 x1000/uL (130-400); RED BLOOD CELL COUNT 3.39 mill/uL (4.7-6.1); RED CELL DISTRIBUTION WIDTH 26.1 % (11.6-14.6)
[2022-10-31 08:05] LABS: CHLORIDE 93 mEq/L (98-107)
[2022-10-31] MEDS: CARVEDILOL 3.125 MG TABLET PO SCH ×2 (09:12→21:48)
[2022-10-31] MEDS: FUROSEMIDE 40MG TABLET PO SCH ×2 (09:13→21:46)
[2022-10-31 09:57] LABS: NUCLEATED RED BLOOD CELLS 1 /100 WBC
[2022-10-31 09:58] LABS: PLATELET ESTIMATE NORMAL
[2022-10-31] MEDS: MONTELUKAST SODIUM 10MG TABLET PO SCH (18:12)
[2022-11-01] VITALS (10 sets, daily range): BP systolic 107–131; BP diastolic 59–77
[2022-11-01] MEDS: NITROGLYCERIN OINT 1GM/INCH UDPKT TD SCH ×4 (01:03→23:02)
[2022-11-01 06:59] LABS: HEMATOCRIT. 30.7 % (42.0-52.0); HEMOGLOBIN. 9.4 g/dL (14.0-18.0); MEAN CORPUSCULAR VOLUME 85.1 fL (80.0-94.0); PLATELET 243 x1000/uL (130-400); RED CELL DISTRIBUTION WIDTH 26.5 % (11.6-14.6)
[2022-11-01 07:07] LABS: CHLORIDE 94 mEq/L (98-107)
[2022-11-01] MEDS: METHYLPREDNISOLONE SOD SUCC 40 MG/ML VIAL IV SCH ×3 (07:56→23:03)
[2022-11-01] MEDS: PANTOPRAZOLE SODIUM 40 MG/VIAL IV SCH ×2 (07:56→18:00)
[2022-11-01 08:59] LABS: BG BASE EXCESS 11.7 mmol/L (-2.0-2.0); BG CARBOXYHEMOGLOBIN 0.2 % (0.5-1.5); BG DEOXYHEMOGLOBIN 1.7 % (0.0-5.0); BG FRACTION INSPIRED OXYGEN 36; BG METHEMOGLOBIN 0.3 % (0.0-1.5); BG OXYGEN SATURATION 98.3 % (92.0-98.5); BG OXYHEMOGLOBIN 97.8 % (94.0-97.0); BG PCO2 68.3 mmHg (35.0-45.0); BG PH 7.374 (7.350-7.450); BG PO2 117.9 mmHg (75.0-100.0); BG SAMPLE SITE RIGHT RADIAL; BG TOTAL HEMOGLOBIN 9.7 g/dL (12.0-18.0); BG VENT MODE NASAL CANNULA
[2022-11-01] MEDS: FUROSEMIDE 40MG TABLET PO SCH ×2 (09:17→23:03)
[2022-11-01 09:38] LABS: PLATELET ESTIMATE NORMAL
[2022-11-01] MEDS ORDERED: DEXTROSE 50% WATER 50ML SYRINGE IV PRN (13:00)
[2022-11-01] MEDS: BLOOD SUGAR DIAGNOSTIC STRIP TEST SCH ×2 (13:00→21:00)
[2022-11-01] MEDS: MONTELUKAST SODIUM 10MG TABLET PO SCH (16:54)
[2022-11-01] MEDS: CARVEDILOL 3.125 MG TABLET PO SCH (16:55)
[2022-11-01] MEDS: INSULIN LISPRO 100 UNITS/ML SUBCUT SCH ×2 (17:18→23:04)
[2022-11-02] VITALS: BP 125/75
[2022-11-02 02:00] VITALS: BP 127/61
[2022-11-02 04:00] VITALS: BP 148/72
[2022-11-02] MEDS: PANTOPRAZOLE SODIUM 40 MG/VIAL IV SCH (05:33)
[2022-11-02] MEDS: METHYLPREDNISOLONE SOD SUCC 40 MG/ML VIAL IV SCH ×2 (05:34→13:49)
[2022-11-02] MEDS: NITROGLYCERIN OINT 1GM/INCH UDPKT TD SCH ×2 (05:34→13:53)
[2022-11-02 06:00] VITALS: BP 134/79
[2022-11-02] MEDS: BLOOD SUGAR DIAGNOSTIC STRIP TEST SCH ×2 (07:30→13:14)
[2022-11-02] MEDS: FUROSEMIDE 40MG TABLET PO SCH (08:50)
[2022-11-02] MEDS: INSULIN LISPRO 100 UNITS/ML SUBCUT SCH ×2 (08:51→13:52)
[2022-11-02] MEDS ORDERED: CARVEDILOL 12.5MG TABLET PO SCH (09:00)
[2022-11-03] MEDS ORDERED: FAMOTIDINE 20MG/2ML VIAL IV SCH (09:00)
== END 2022-11-02 16:57 | disposition home or self-care (01) | DRG 291 ==
LOC: ER 10:07 → MICUNO 12:03 → EDBEDREQTM 12:12 → EDBEDREQ 12:12 → EDBEDREQSVC 12:12 → ENRESERV 13:14 → MICUNO 16:00 → MICUSO 10-24 19:20 → 5EST 10-26 13:45
PROVIDERS: ADMIT Internal Medicine; ATTEND Internal Medicine
PROC: 5A09357 Assistance with Respiratory Ventilation, Less than 24 Consecutive Hours, Continuous Positive Airway Pressure (ICD-10-PCS; principal; 2022-10-23)
PROC: 30233N1 Transfusion of Nonautologous Red Blood Cells into Peripheral Vein, Percutaneous Approach (ICD-10-PCS; 2022-10-23)
PROC: 5A09357 Assistance with Respiratory Ventilation, Less than 24 Consecutive Hours, Continuous Positive Airway Pressure (ICD-10-PCS; 2022-10-24)
PROC: 5A09357 Assistance with Respiratory Ventilation, Less than 24 Consecutive Hours, Continuous Positive Airway Pressure (ICD-10-PCS; 2022-10-25)
PROC: 5A09357 Assistance with Respiratory Ventilation, Less than 24 Consecutive Hours, Continuous Positive Airway Pressure (ICD-10-PCS; 2022-10-26)
PROC: 5A09357 Assistance with Respiratory Ventilation, Less than 24 Consecutive Hours, Continuous Positive Airway Pressure (ICD-10-PCS; 2022-10-27)
PROC: 5A09357 Assistance with Respiratory Ventilation, Less than 24 Consecutive Hours, Continuous Positive Airway Pressure (ICD-10-PCS; 2022-10-28)
PROC: 5A09357 Assistance with Respiratory Ventilation, Less than 24 Consecutive Hours, Continuous Positive Airway Pressure (ICD-10-PCS; 2022-10-29)
PROC: 0W9930Z Drainage of Right Pleural Cavity with Drainage Device, Percutaneous Approach (ICD-10-PCS; 2022-10-29)
PROC: 5A09357 Assistance with Respiratory Ventilation, Less than 24 Consecutive Hours, Continuous Positive Airway Pressure (ICD-10-PCS; 2022-10-30)
PROC: 5A09357 Assistance with Respiratory Ventilation, Less than 24 Consecutive Hours, Continuous Positive Airway Pressure (ICD-10-PCS; 2022-10-31)
PROC: 5A09357 Assistance with Respiratory Ventilation, Less than 24 Consecutive Hours, Continuous Positive Airway Pressure (ICD-10-PCS; 2022-11-01)
DX: I11.0 Hypertensive heart disease with heart failure (principal); I50.23 Acute on chronic systolic (congestive) heart failure; J96.21 Acute and chronic respiratory failure with hypoxia; J96.22 Acute and chronic respiratory failure with hypercapnia; E46 Unspecified protein-calorie malnutrition; E87.4 Mixed disorder of acid-base balance; J44.1 Chronic obstructive pulmonary disease with (acute) exacerbation; J91.8 Pleural effusion in other conditions classified elsewhere; I24.8 Other forms of acute ischemic heart disease; I42.0 Dilated cardiomyopathy; Z66 Do not resuscitate; G50.0 Trigeminal neuralgia; D50.9 Iron deficiency anemia, unspecified; F17.210 Nicotine dependence, cigarettes, uncomplicated; Z20.822 Contact with and (suspected) exposure to COVID-19; I27.20 Pulmonary hypertension, unspecified; I73.9 Peripheral vascular disease, unspecified; N40.0 Benign prostatic hyperplasia without lower urinary tract symptoms; K52.9 Noninfective gastroenteritis and colitis, unspecified; I89.0 Lymphedema, not elsewhere classified; I49.3 Ventricular premature depolarization; I25.10 Atherosclerotic heart disease of native coronary artery without angina pectoris; G62.9 Polyneuropathy, unspecified; E88.09 Other disorders of plasma-protein metabolism, not elsewhere classified; D75.89 Other specified diseases of blood and blood-forming organs; B35.3 Tinea pedis; Z68.20 Body mass index [BMI] 20.0-20.9, adult; I25.2 Old myocardial infarction; Z85.46 Personal history of malignant neoplasm of prostate; Z90.79 Acquired absence of other genital organ(s); Z99.3 Dependence on wheelchair; Z79.899 Other long term (current) drug therapy; Z91.040 Latex allergy status
CPT/HCPCS: 32555; 36415; 36600; 71045; 76604; 80048; 80053; 82270; 82375; 82607; 82728; 82746; 82805; 82962; 83036; 83540; 83550; 83615; 83735; 83880; 84100; 84145; 84484; 85025; 85044; 85379; 86850; 86900; 86920; 87426; 87804; 88108; 93005; 93306; 93923; 93970; 94640; 94660; 97162; 97166; 97530; 97535; 99291; C9113; C9803; J0456; J0696; J1120; J1200; J1815; J1940; J2920; J2930; J3475; J3490; J7060; J7626; P9016

== ENCOUNTER 2022-12-28 14:13 | Inpatient (IN) | payer MEDICARE ==
[~2022-12-28] VITALS: Ht 180.3 cm; Wt 57.6 kg
[2022-12-28] MEDS ORDERED: METHYLPREDNISOLONE SOD SUCC 125 MG/2 ML VIAL IV STA (14:43)
[2022-12-28] MEDS ORDERED: ALBUTEROL (0.083%) 2.5MG/3ML NEB HHN STA (14:43)
[2022-12-28] MEDS ORDERED: IPRATROPIUM BROMIDE (0.02%) 0.5MG/2.5ML NEB HHN STA (14:43)
[2022-12-28] MEDS ORDERED: NITROGLYCERIN 0.4MG TABLET SL SL PRN (14:45)
[2022-12-28] MEDS ORDERED: ASPIRIN 81MG TABLET PO ONE (14:45)
[2022-12-28] MEDS ORDERED: CLONIDINE 0.1MG TABLET PO PRN (16:00)
[2022-12-28] MEDS ORDERED: ONDANSETRON HCL 4MG/2ML INJ IV PRN (16:00)
[2022-12-28] MEDS ORDERED: ACETAMINOPHEN 325MG TABLET PO PRN ×2 (16:00)
[2022-12-28] MEDS ORDERED: GUAIFENESIN 200MG/10ML SUGAR FREE UDC PO PRN (16:00)
[2022-12-28] MEDS ORDERED: DIPHENHYDRAMINE 50MG/ML VIAL IV PRN (16:00)
[2022-12-28] MEDS ORDERED: MAGNESIUM/ALUMINUM HYDROXIDE/SIMETHICONE 30ML UDC PO PRN (16:00)
[2022-12-28] MEDS ORDERED: IPRATROPIUM/ALBUTEROL 0.5-3(2.5)MG/3ML NEB HHN PRN (16:00)
[2022-12-28] MEDS ORDERED: ZOLPIDEM TARTRATE 5MG TABLET PO PRN (16:00)
[2022-12-28 16:03] LABS: HEMATOCRIT. 33.2 % (42.0-52.0); HEMOGLOBIN. 10.3 g/dL (14.0-18.0); MEAN CORPUSCULAR HEMOGLOBIN 29.7 pg (28.0-32.0); MEAN CORPUSCULAR VOLUME 95.6 fL (80.0-94.0); MEAN PLATELET VOLUME 7.1 fl (7.4-10.4); PLATELET 302 x1000/uL (130-400); RED BLOOD CELL COUNT 3.47 mill/uL (4.7-6.1); RED CELL DISTRIBUTION WIDTH 22.4 % (11.6-14.6)
[2022-12-28 16:12] LABS: CHLORIDE 102 mEq/L (98-107)
[2022-12-28 16:12] LABS: BG BASE EXCESS 9.2 mmol/L (-2.0-2.0); BG CARBOXYHEMOGLOBIN 0.9 % (0.5-1.5); BG DEOXYHEMOGLOBIN 3.4 % (0.0-5.0); BG FRACTION INSPIRED OXYGEN 40; BG HCO3 ACT 39.2 mmol/L (22.0-26.0); BG METHEMOGLOBIN 0.4 % (0.0-1.5); BG OXYGEN SATURATION 96.6 % (92.0-98.5); BG OXYHEMOGLOBIN 95.3 % (94.0-97.0); BG PCO2 90.3 mmHg (35.0-45.0); BG PH 7.255 (7.350-7.450); BG PO2 96.5 mmHg (75.0-100.0); BG SAMPLE SITE RIGHT BRACHIAL; BG TOTAL HEMOGLOBIN 11.3 g/dL (12.0-18.0); BG VENT MODE NASAL CANNULA
[2022-12-28] MEDS ORDERED: CARBAMAZEPINE 200MG TABLET PO SCH (17:00)
[2022-12-28 17:18] LABS: PLATELET ESTIMATE NORMAL
[2022-12-28 18:18] LABS: BG BASE EXCESS 7.2 mmol/L (-2.0-2.0); BG CARBOXYHEMOGLOBIN 1.1 % (0.5-1.5); BG DEOXYHEMOGLOBIN 3.6 % (0.0-5.0); BG FRACTION INSPIRED OXYGEN 35; BG METHEMOGLOBIN 0.4 % (0.0-1.5); BG OXYGEN SATURATION 96.3 % (92.0-98.5); BG OXYHEMOGLOBIN 94.9 % (94.0-97.0); BG PCO2 75.1 mmHg (35.0-45.0); BG PH 7.299 (7.350-7.450); BG PO2 88.1 mmHg (75.0-100.0); BG SAMPLE SITE RIGHT RADIAL; BG TOTAL HEMOGLOBIN 12.3 g/dL (12.0-18.0); BG TOTAL RESPIRATORY RATE 22 b/min; BG VENT MODE MASK - BIPAP
[2022-12-28] MEDS: NITROGLYCERIN OINT 1GM/INCH UDPKT TD SCH ×2 (18:33→23:47)
[2022-12-28] MEDS: FUROSEMIDE 40MG/4ML VIAL IVP SCH (18:33)
[2022-12-28] MEDS: CARBAMAZEPINE 100MG TABLET CHEW PO SCH (19:25)
[2022-12-28] MEDS: MONTELUKAST SODIUM 10MG TABLET PO SCH (19:25)
[2022-12-28] MEDS: IPRATROPIUM/ALBUTEROL 0.5-3(2.5)MG/3ML NEB HHN SCH (20:21)
[2022-12-28] MEDS: BUDESONIDE 0.5MG/2ML NEB HHN SCH (20:21)
[2022-12-28 21:45] VITALS: BP 106/69
[2022-12-28] MEDS: SODIUM CHLORIDE 0.9% INJ 3ML FLUSH IVF SCH (22:00)
[2022-12-28 22:05] VITALS: BP 106/69
[2022-12-28 23:47] VITALS: BP 114/67
[2022-12-28] MEDS: PANTOPRAZOLE 40MG DR TABLET PO SCH (23:48)
[2022-12-28] MEDS: METHYLPREDNISOLONE SOD SUCC 40 MG/ML VIAL IV SCH (23:49)
[2022-12-29] VITALS (11 sets, daily range): BP systolic 96–129; BP diastolic 40–70
[2022-12-29] MEDS: IPRATROPIUM/ALBUTEROL 0.5-3(2.5)MG/3ML NEB HHN SCH ×6 (01:07→20:44)
[2022-12-29] MEDS: NITROGLYCERIN OINT 1GM/INCH UDPKT TD SCH ×4 (05:41→23:55)
[2022-12-29] MEDS: SODIUM CHLORIDE 0.9% INJ 3ML FLUSH IVF SCH ×3 (05:41→21:54)
[2022-12-29] MEDS: METHYLPREDNISOLONE SOD SUCC 40 MG/ML VIAL IV SCH ×3 (05:41→22:31)
[2022-12-29 07:15] LABS: HEMATOCRIT. 26.9 % (42.0-52.0); HEMOGLOBIN. 8.8 g/dL (14.0-18.0); MEAN CORPUSCULAR HEMOGLOBIN 30.5 pg (28.0-32.0); MEAN CORPUSCULAR VOLUME 93.6 fL (80.0-94.0); MEAN PLATELET VOLUME 6.9 fl (7.4-10.4); PLATELET 248 x1000/uL (130-400); RED BLOOD CELL COUNT 2.87 mill/uL (4.7-6.1); RED CELL DISTRIBUTION WIDTH 22.2 % (11.6-14.6)
[2022-12-29] MEDS: BUDESONIDE 0.5MG/2ML NEB HHN SCH ×2 (07:53→20:44)
[2022-12-29] MEDS: CARBAMAZEPINE 100MG TABLET CHEW PO SCH (08:00)
[2022-12-29] MEDS: TAMSULOSIN HCL 0.4MG SR CAPSULE PO SCH (08:43)
[2022-12-29] MEDS: PANTOPRAZOLE 40MG DR TABLET PO SCH (08:44)
[2022-12-29] MEDS: FUROSEMIDE 40MG/4ML VIAL IVP SCH ×2 (08:44→17:30)
[2022-12-29 11:34] LABS: PLATELET ESTIMATE NORMAL
[2022-12-29] MEDS: CARBAMAZEPINE 200MG/10ML UDC PO SCH ×2 (12:32→20:50)
[2022-12-29] MEDS ORDERED: LOPERAMIDE HCL 2MG CAPSULE PO PRN (17:00)
[2022-12-29] MEDS: MONTELUKAST SODIUM 10MG TABLET PO SCH (17:30)
[2022-12-29] MEDS: PANTOPRAZOLE SODIUM 40 MG/VIAL IV SCH (20:51)
[2022-12-30] VITALS (12 sets, daily range): BP systolic 102–141; BP diastolic 56–82
[2022-12-30] MEDS: IPRATROPIUM/ALBUTEROL 0.5-3(2.5)MG/3ML NEB HHN SCH ×6 (00:35→20:00)
[2022-12-30] MEDS: SODIUM CHLORIDE 0.9% INJ 3ML FLUSH IVF SCH ×3 (06:31→21:26)
[2022-12-30] MEDS: METHYLPREDNISOLONE SOD SUCC 40 MG/ML VIAL IV SCH ×3 (06:32→21:25)
[2022-12-30] MEDS: NITROGLYCERIN OINT 1GM/INCH UDPKT TD SCH ×4 (06:32→23:06)
[2022-12-30 07:25] LABS: HEMATOCRIT. 24.6 % (42.0-52.0); HEMOGLOBIN. 8.1 g/dL (14.0-18.0); MEAN CORPUSCULAR HEMOGLOBIN 30.1 pg (28.0-32.0); MEAN CORPUSCULAR VOLUME 91.9 fL (80.0-94.0); MEAN PLATELET VOLUME 7.5 fl (7.4-10.4); PLATELET 252 x1000/uL (130-400); RED BLOOD CELL COUNT 2.68 mill/uL (4.7-6.1); RED CELL DISTRIBUTION WIDTH 21.9 % (11.6-14.6)
[2022-12-30 07:29] LABS: CHLORIDE 97 mEq/L (98-107)
[2022-12-30] MEDS: BUDESONIDE 0.5MG/2ML NEB HHN SCH ×2 (08:24→16:15)
[2022-12-30] MEDS: TAMSULOSIN HCL 0.4MG SR CAPSULE PO SCH (08:39)
[2022-12-30] MEDS: PANTOPRAZOLE SODIUM 40 MG/VIAL IV SCH ×2 (08:39→21:25)
[2022-12-30] MEDS: FUROSEMIDE 40MG/4ML VIAL IVP SCH ×2 (08:39→17:11)
[2022-12-30] MEDS: CARBAMAZEPINE 200MG/10ML UDC PO SCH ×2 (08:39→17:11)
[2022-12-30 09:18] LABS: BG CARBOXYHEMOGLOBIN 0.3 % (0.5-1.5); BG DEOXYHEMOGLOBIN 1.2 % (0.0-5.0); BG FRACTION INSPIRED OXYGEN 35; BG HCO3 ACT 37.5 mmol/L (22.0-26.0); BG METHEMOGLOBIN 0.3 % (0.0-1.5); BG OXYGEN SATURATION 98.8 % (92.0-98.5); BG OXYHEMOGLOBIN 98.2 % (94.0-97.0); BG PCO2 54.8 mmHg (35.0-45.0); BG PH 7.453 (7.350-7.450); BG PO2 137.2 mmHg (75.0-100.0); BG SAMPLE SITE RIGHT BRACHIAL; BG TOTAL HEMOGLOBIN 9.2 g/dL (12.0-18.0); BG TOTAL RESPIRATORY RATE 22 b/min; BG VENT MODE MASK - BIPAP
[2022-12-30 14:01] LABS: PLATELET ESTIMATE NORMAL
[2022-12-30] MEDS: MONTELUKAST SODIUM 10MG TABLET PO SCH (17:11)
[2022-12-31] VITALS (16 sets, daily range): BP systolic 111–137; BP diastolic 39–75
[2022-12-31] MEDS: IPRATROPIUM/ALBUTEROL 0.5-3(2.5)MG/3ML NEB HHN SCH ×6 (00:08→21:21)
[2022-12-31] MEDS: METHYLPREDNISOLONE SOD SUCC 40 MG/ML VIAL IV SCH ×3 (05:03→21:45)
[2022-12-31] MEDS: SODIUM CHLORIDE 0.9% INJ 3ML FLUSH IVF SCH ×3 (05:04→21:48)
[2022-12-31] MEDS: NITROGLYCERIN OINT 1GM/INCH UDPKT TD SCH ×3 (05:04→19:01)
[2022-12-31 06:41] LABS: HEMATOCRIT. 25.2 % (42.0-52.0); HEMOGLOBIN. 8.2 g/dL (14.0-18.0); MEAN CORPUSCULAR HEMOGLOBIN 30.1 pg (28.0-32.0); MEAN CORPUSCULAR VOLUME 92.2 fL (80.0-94.0); MEAN PLATELET VOLUME 7.4 fl (7.4-10.4); PLATELET 264 x1000/uL (130-400); RED BLOOD CELL COUNT 2.73 mill/uL (4.7-6.1); RED CELL DISTRIBUTION WIDTH 21.7 % (11.6-14.6)
[2022-12-31 06:50] LABS: CHLORIDE 93 mEq/L (98-107)
[2022-12-31 08:30] LABS: BG BASE EXCESS 11.1 mmol/L (-2.0-2.0); BG CARBOXYHEMOGLOBIN 0.4 % (0.5-1.5); BG DEOXYHEMOGLOBIN 5.4 % (0.0-5.0); BG FRACTION INSPIRED OXYGEN 36; BG HCO3 ACT 36.4 mmol/L (22.0-26.0); BG METHEMOGLOBIN 0.2 % (0.0-1.5); BG OXYGEN SATURATION 94.6 % (92.0-98.5); BG PCO2 53.3 mmHg (35.0-45.0); BG PH 7.452 (7.350-7.450); BG PO2 70.9 mmHg (75.0-100.0); BG SAMPLE SITE RIGHT RADIAL; BG TOTAL HEMOGLOBIN 8.3 g/dL (12.0-18.0); BG VENT MODE NASAL CANNULA
[2022-12-31] MEDS: FUROSEMIDE 40MG/4ML VIAL IVP SCH ×2 (08:50→19:01)
[2022-12-31] MEDS: PANTOPRAZOLE SODIUM 40 MG/VIAL IV SCH ×2 (08:51→21:45)
[2022-12-31] MEDS: TAMSULOSIN HCL 0.4MG SR CAPSULE PO SCH (08:52)
[2022-12-31] MEDS: CARBAMAZEPINE 200MG/10ML UDC PO SCH ×2 (08:52→19:01)
[2022-12-31] MEDS: BUDESONIDE 0.5MG/2ML NEB HHN SCH ×2 (09:05→21:21)
[2022-12-31] MEDS ORDERED: DEXTROSE 50% WATER 50ML SYRINGE IV PRN (09:15)
[2022-12-31 10:33] LABS: PLATELET ESTIMATE NORMAL
[2022-12-31] MEDS: BLOOD SUGAR DIAGNOSTIC STRIP TEST SCH ×3 (11:19→21:10)
[2022-12-31] MEDS: INSULIN LISPRO 100 UNITS/ML SUBCUT SCH ×3 (13:24→21:23)
[2022-12-31] MEDS: MONTELUKAST SODIUM 10MG TABLET PO SCH (19:01)
[2023-01-01] VITALS (10 sets, daily range): BP systolic 107–154; BP diastolic 55–90
[2023-01-01] MEDS: IPRATROPIUM/ALBUTEROL 0.5-3(2.5)MG/3ML NEB HHN SCH ×6 (00:27→20:27)
[2023-01-01] MEDS: NITROGLYCERIN OINT 1GM/INCH UDPKT TD SCH ×4 (02:09→17:50)
[2023-01-01 06:08] LABS: BASOPHILS % 0.2 % (0.0-2.0); HEMATOCRIT. 24.9 % (42.0-52.0); HEMOGLOBIN. 8.2 g/dL (14.0-18.0); LYMPHOCYTES % 14.4 % (20.0-50.0); MEAN CORPUSCULAR HEMOGLOBIN 30.2 pg (28.0-32.0); MEAN CORPUSCULAR VOLUME 91.8 fL (80.0-94.0); MEAN PLATELET VOLUME 7.2 fl (7.4-10.4); MONOCYTES % 5.8 % (2.0-8.0); NEUTROPHILS % 79.6 % (40.0-76.0); PLATELET 279 x1000/uL (130-400); RED BLOOD CELL COUNT 2.71 mill/uL (4.7-6.1); RED CELL DISTRIBUTION WIDTH 21.8 % (11.6-14.6)
[2023-01-01 06:38] LABS: CHLORIDE 94 mEq/L (98-107)
[2023-01-01] MEDS: SODIUM CHLORIDE 0.9% INJ 3ML FLUSH IVF SCH ×2 (06:54→13:44)
[2023-01-01] MEDS: METHYLPREDNISOLONE SOD SUCC 40 MG/ML VIAL IV SCH ×2 (06:54→13:44)
[2023-01-01] MEDS: BLOOD SUGAR DIAGNOSTIC STRIP TEST SCH ×4 (08:28→20:39)
[2023-01-01] MEDS: PANTOPRAZOLE SODIUM 40 MG/VIAL IV SCH (08:58)
[2023-01-01] MEDS: CARBAMAZEPINE 200MG/10ML UDC PO SCH ×2 (08:58→17:49)
[2023-01-01] MEDS: FUROSEMIDE 40MG/4ML VIAL IVP SCH (08:58)
[2023-01-01 08:59] LABS: BG BASE EXCESS 16.1 mmol/L (-2.0-2.0); BG CARBOXYHEMOGLOBIN 0.4 % (0.5-1.5); BG DEOXYHEMOGLOBIN 1.9 % (0.0-5.0); BG FRACTION INSPIRED OXYGEN 30; BG HCO3 ACT 41.6 mmol/L (22.0-26.0); BG METHEMOGLOBIN 0.4 % (0.0-1.5); BG OXYGEN SATURATION 98.1 % (92.0-98.5); BG OXYHEMOGLOBIN 97.3 % (94.0-97.0); BG PCO2 57.9 mmHg (35.0-45.0); BG PH 7.474 (7.350-7.450); BG PO2 104.2 mmHg (75.0-100.0); BG SAMPLE SITE RIGHT RADIAL; BG TOTAL HEMOGLOBIN 8.4 g/dL (12.0-18.0); BG VENT MODE MASK - BIPAP
[2023-01-01] MEDS: INSULIN LISPRO 100 UNITS/ML SUBCUT SCH ×4 (09:27→20:40)
[2023-01-01] MEDS: BUDESONIDE 0.5MG/2ML NEB HHN SCH ×2 (12:51→20:27)
[2023-01-01] MEDS ORDERED: PANTOPRAZOLE 40MG DR TABLET PO SCH (21:00)
[2023-01-01] MEDS ORDERED: GUAIFENESIN 600MG ER TABLET PO SCH (21:00)
[2023-01-02] MEDS ORDERED: PREDNISONE 20MG TABLET PO SCH (09:00)
[2023-01-02] MEDS ORDERED: FUROSEMIDE 40MG TABLET PO SCH (09:00)
== END 2023-01-01 22:05 | DRG 291 ==
LOC: ER 15:06 → 5EST 21:53
PROVIDERS: ADMIT Internal Medicine; ATTEND Internal Medicine
PROC: 5A09457 Assistance with Respiratory Ventilation, 24-96 Consecutive Hours, Continuous Positive Airway Pressure (ICD-10-PCS; principal; 2022-12-28)
PROC: 5A09357 Assistance with Respiratory Ventilation, Less than 24 Consecutive Hours, Continuous Positive Airway Pressure (ICD-10-PCS; 2022-12-30)
PROC: 5A09357 Assistance with Respiratory Ventilation, Less than 24 Consecutive Hours, Continuous Positive Airway Pressure (ICD-10-PCS; 2022-12-31)
PROC: 5A09357 Assistance with Respiratory Ventilation, Less than 24 Consecutive Hours, Continuous Positive Airway Pressure (ICD-10-PCS; 2023-01-01)
DX: I13.0 Hypertensive heart and chronic kidney disease with heart failure and stage 1 through stage 4 chronic kidney disease, or unspecified chronic kidney disease (principal); G93.41 Metabolic encephalopathy; I50.23 Acute on chronic systolic (congestive) heart failure; J96.21 Acute and chronic respiratory failure with hypoxia; J96.22 Acute and chronic respiratory failure with hypercapnia; J18.9 Pneumonia, unspecified organism; J44.1 Chronic obstructive pulmonary disease with (acute) exacerbation; F32.1 Major depressive disorder, single episode, moderate; E44.1 Mild protein-calorie malnutrition; J44.0 Chronic obstructive pulmonary disease with (acute) lower respiratory infection; Z68.1 Body mass index [BMI] 19.9 or less, adult; N18.9 Chronic kidney disease, unspecified; Z66 Do not resuscitate; I49.3 Ventricular premature depolarization; I08.1 Rheumatic disorders of both mitral and tricuspid valves; N40.0 Benign prostatic hyperplasia without lower urinary tract symptoms; D63.8 Anemia in other chronic diseases classified elsewhere; I73.9 Peripheral vascular disease, unspecified; I25.5 Ischemic cardiomyopathy; I49.1 Atrial premature depolarization; I25.10 Atherosclerotic heart disease of native coronary artery without angina pectoris; R73.9 Hyperglycemia, unspecified; T38.0X5A Adverse effect of glucocorticoids and synthetic analogues, initial encounter; Z87.891 Personal history of nicotine dependence; Z99.81 Dependence on supplemental oxygen; Z85.46 Personal history of malignant neoplasm of prostate; Z79.899 Other long term (current) drug therapy; Z90.79 Acquired absence of other genital organ(s); Y92.89 Other specified places as the place of occurrence of the external cause
CPT/HCPCS: 36415; 36600; 71045; 80048; 80053; 82375; 82805; 82962; 83036; 83605; 83880; 84484; 85025; 93005; 93306; 94640; 94660; 97162; 99291; C9113; J1815; J1940; J2920; J2930; J7626

== ENCOUNTER 2023-02-20 15:12 | Inpatient (IN) | payer MEDICARE ==
[~2023-02-20] VITALS: Ht 180.3 cm; Wt 62.2 kg
[~2023-02-20 15:12] MED LIST changes: +ASPI-1497 MT; +ATOR-2 PO; -CARB200T MT; +CARV3.1242 PO; -DOXA1TAB2 PO; -DULO20CA18 PO; +FLUT15.844 BOTHNSTRLS; -FLUT16SP15; -FLUT1BLS3 IH; +FLUT1BLS3 INH; +FURO-151 MT; +PANT40TA51 PO; +POTA-202 PO; +SACU1TAB MT; +SPIR25TA6 PO; +TAMS-11 MT; -TAMS-11 PO
[2023-02-20] MEDS ORDERED: METHYLPREDNISOLONE SOD SUCC 125MG/2ML (ACT-O-VIAL) IV STA (15:22)
[2023-02-20] MEDS ORDERED: IPRATROPIUM BROMIDE (0.02%) 0.5MG/2.5ML NEB HHN STA (15:22)
[2023-02-20 15:49] VITALS: PULSE 84; RESP 20; O2SAT 96
[2023-02-20] MEDS: ALBUTEROL (0.083%) 2.5MG/3ML NEB HHN SCH (15:49)
[2023-02-20 16:03] LABS: BASOPHILS % 0.6 % (0.0-2.0); DIFFERENTIAL COMMENT 0; EOSINOPHILS % 4.2 % (0.0-5.0); HEMATOCRIT. 26.7 % (42.0-52.0); HEMOGLOBIN. 8.8 g/dL (14.0-18.0); LYMPHOCYTES % 14.4 % (20.0-50.0); MEAN CORPUSCULAR HEMOGLOBIN 33.5 pg (28.0-32.0); MEAN CORPUSCULAR HGB CONC 32.8 g/dL (31.0-37.0); MEAN CORPUSCULAR VOLUME 101.9 fL (80.0-94.0); MEAN PLATELET VOLUME 6.4 fl (7.4-10.4); MONOCYTES % 13.1 % (2.0-8.0); NEUTROPHILS % 67.7 % (40.0-76.0); PLATELET 268 x1000/uL (130-400); RED BLOOD CELL COUNT 2.62 mill/uL (4.7-6.1); RED CELL DISTRIBUTION WIDTH 21.5 % (11.6-14.6); WHITE BLOOD COUNT 8.2 x1000/uL (4.5-11.0)
[2023-02-20 16:18] LABS: CHLORIDE 100 mEq/L (98-107); INDEX HEMOLYSI 1 (1-3); INDEX ICTERIC 1 (1-4); INDEX LIPEMIC 1 (1-3); POTASSIUM 4.5 mEq/L (3.5-5.1); SODIUM 137 mEq/L (136-145)
[2023-02-20 16:30] LABS: ALANINE AMINOTRANSFERASE 26 IU/L (13-61); ALBUMIN 3.1 g/dL (3.4-5.0); ASPARTATE AMINOTRANSFERASE 23 IU/L (15-37); BILIRUBIN TOTAL 0.2 mg/dL (0.1-1.0); CALCIUM 8.2 mg/dL (8.5-10.1); CARBON DIOXIDE 34 mEq/L (21-32); CREATININE 1.5 mg/dL (0.6-1.3); GLUCOSE 111 mg/dL (70-105); NT PRO B-TYPE NATRIURETIC PEP 3136 pg/mL (5-125); PROTEIN TOTAL 7.5 g/dL (6.0-8.3); TROPONIN I HIGH SENSITIVITY 36 ng/L (<78); UREA NITROGEN BLOOD 20 mg/dL (7-21)
[2023-02-20] MEDS ORDERED: CLONIDINE 0.1MG TABLET PO PRN (16:45)
[2023-02-20] MEDS ORDERED: ONDANSETRON HCL 4MG/2ML INJ IV PRN (16:45)
[2023-02-20] MEDS ORDERED: IPRATROPIUM/ALBUTEROL 0.5-3(2.5)MG/3ML NEB NEB PRN (16:45)
[2023-02-20] MEDS ORDERED: DIPHENHYDRAMINE 50MG/ML VIAL IV PRN (16:45)
[2023-02-20] MEDS ORDERED: MAGNESIUM/ALUMINUM HYDROXIDE/SIMETHICONE 30ML UDC PO PRN (16:45)
[2023-02-20] MEDS ORDERED: MAGNESIUM HYDROXIDE 400MG/5ML 30ML UDC PO PRN (16:45)
[2023-02-20] MEDS ORDERED: METHYLPREDNISOLONE SOD SUCC 40MG VIAL IV SCH (16:45)
[2023-02-20] MEDS ORDERED: ACETAMINOPHEN 325MG TABLET PO PRN ×2 (16:45)
[2023-02-20] MEDS ORDERED: FUROSEMIDE 40MG/4ML VIAL IVP NR (17:00)
[2023-02-20 17:05] LABS: LACTIC ACID 3.3 mmol/L (0.4-2.0)
[2023-02-20] MEDS: PANTOPRAZOLE 40MG DR TABLET PO SCH (17:21)
[2023-02-20] MEDS: MONTELUKAST SODIUM 10MG TABLET PO SCH (17:21)
[2023-02-20] MEDS: ENOXAPARIN 40MG/0.4ML SYR SUBCUT SCH (18:26)
[2023-02-20 20:30] VITALS: PULSE 98; RESP 20; O2SAT 100
[2023-02-20] MEDS: IPRATROPIUM/ALBUTEROL 0.5-3(2.5)MG/3ML NEB HHN SCH (20:30)
[2023-02-20] MEDS ORDERED: ZOLPIDEM TARTRATE 5MG TABLET PO PRN (21:00)
[2023-02-20] MEDS: CARBAMAZEPINE 200MG TABLET PO SCH (22:00)
[2023-02-20] MEDS: ATORVASTATIN CALCIUM 40MG TABLET PO SCH (22:00)
[2023-02-20] MEDS: GUAIFENESIN 600MG ER TABLET PO SCH (22:00)
[2023-02-20] MEDS: SODIUM CHLORIDE 0.9% INJ 3ML FLUSH IVF SCH (22:05)
[2023-02-20] MEDS: METHYLPREDNISOLONE SOD SUCC 125MG VIAL IV SCH (22:05)
[2023-02-21] VITALS (7 sets, daily range): BP systolic 109–139; BP diastolic 40–61; PULSE 76–99; RESP 18–22; TEMP 97.8–100.9; O2SAT 96–99
[2023-02-21] MEDS ORDERED: ALBUTEROL (0.083%) 2.5MG/3ML NEB ONE (08:36)
[2023-02-21] MEDS: IPRATROPIUM/ALBUTEROL 0.5-3(2.5)MG/3ML NEB HHN SCH ×3 (08:45→21:49)
[2023-02-21 11:23] LABS: BG BASE EXCESS 6.1 mmol/L (-2.0-2.0); BG CARBOXYHEMOGLOBIN 0.5 % (0.5-1.5); BG DEOXYHEMOGLOBIN 5.9 % (0.0-5.0); BG FRACTION INSPIRED OXYGEN 32; BG HCO3 ACT 32.2 mmol/L (22.0-26.0); BG METHEMOGLOBIN 0.5 % (0.0-1.5); BG OXYHEMOGLOBIN 93.1 % (94.0-97.0); BG PCO2 56.6 mmHg (35.0-45.0); BG PH 7.373 (7.350-7.450); BG PO2 75.9 mmHg (75.0-100.0); BG SAMPLE SITE RIGHT RADIAL; BG TOTAL HEMOGLOBIN 8.5 g/dL (12.0-18.0); BG VENT MODE NASAL CANNULA
[2023-02-21] MEDS: METHYLPREDNISOLONE SOD SUCC 125MG VIAL IV SCH ×3 (14:00→21:31)
[2023-02-21] MEDS: SODIUM CHLORIDE 0.9% INJ 3ML FLUSH IVF SCH ×3 (14:00→21:09)
[2023-02-21] MEDS: GUAIFENESIN 600MG ER TABLET PO SCH ×3 (15:36→21:16)
[2023-02-21] MEDS: PANTOPRAZOLE 40MG DR TABLET PO SCH ×2 (15:36→15:50)
[2023-02-21] MEDS: TAMSULOSIN HCL 0.4MG SR CAPSULE PO SCH (15:37)
[2023-02-21] MEDS: CARBAMAZEPINE 200MG TABLET PO SCH ×3 (15:37→21:16)
[2023-02-21] MEDS: LISINOPRIL 2.5MG TABLET PO SCH (15:49)
[2023-02-21] MEDS: DOCUSATE SODIUM 100MG CAPSULE PO SCH (15:49)
[2023-02-21] MEDS: MONTELUKAST SODIUM 10MG TABLET PO SCH (17:16)
[2023-02-21] MEDS: THEOPHYLLINE ANHYDROUS 80 MG/15 ML 120ML PO SCH ×2 (17:16→22:46)
[2023-02-21] MEDS: ENOXAPARIN 40MG/0.4ML SYR SUBCUT SCH (17:17)
[2023-02-21] MEDS: ATORVASTATIN CALCIUM 40MG TABLET PO SCH ×2 (21:00→21:16)
[2023-02-22] VITALS (9 sets, daily range): BP systolic 117–140; BP diastolic 52–88; PULSE 79–100; RESP 18–23; TEMP 96.6–97.9; O2SAT 96–97
[2023-02-22] MEDS: IPRATROPIUM/ALBUTEROL 0.5-3(2.5)MG/3ML NEB HHN SCH ×3 (01:32→14:22)
[2023-02-22] MEDS: SODIUM CHLORIDE 0.9% INJ 3ML FLUSH IVF SCH ×3 (05:03→21:33)
[2023-02-22] MEDS: METHYLPREDNISOLONE SOD SUCC 125MG VIAL IV SCH ×3 (05:03→21:33)
[2023-02-22] MEDS: THEOPHYLLINE ANHYDROUS 80 MG/15 ML 120ML PO SCH ×3 (05:03→21:41)
[2023-02-22] MEDS: PANTOPRAZOLE 40MG DR TABLET PO SCH ×2 (09:02→17:48)
[2023-02-22] MEDS: LISINOPRIL 2.5MG TABLET PO SCH (09:02)
[2023-02-22] MEDS: GUAIFENESIN 600MG ER TABLET PO SCH ×2 (09:03→20:32)
[2023-02-22] MEDS: CARBAMAZEPINE 200MG TABLET PO SCH ×2 (09:03→20:32)
[2023-02-22] MEDS: DOCUSATE SODIUM 100MG CAPSULE PO SCH (09:03)
[2023-02-22] MEDS: TAMSULOSIN HCL 0.4MG SR CAPSULE PO SCH (09:03)
[2023-02-22] MEDS: FUROSEMIDE 40MG TABLET PO SCH (10:33)
[2023-02-22] MEDS: ENOXAPARIN 40MG/0.4ML SYR SUBCUT SCH (17:48)
[2023-02-22] MEDS: MONTELUKAST SODIUM 10MG TABLET PO SCH (17:48)
[2023-02-22] MEDS: ATORVASTATIN CALCIUM 40MG TABLET PO SCH (20:32)
[2023-02-22] MEDS: PROMETHAZINE/DEXTROMETHORPHAN 6.25-15MG/5ML BOTTLE 120ML PO PRN (22:55)
[2023-02-23] VITALS (11 sets, daily range): BP systolic 100–137; BP diastolic 52–62; PULSE 86–95; RESP 16–22; TEMP 97–98.7
[2023-02-23] MEDS: IPRATROPIUM/ALBUTEROL 0.5-3(2.5)MG/3ML NEB HHN SCH ×3 (00:15→17:00)
[2023-02-23] MEDS: METHYLPREDNISOLONE SOD SUCC 125MG VIAL IV SCH ×3 (05:14→20:38)
[2023-02-23] MEDS: SODIUM CHLORIDE 0.9% INJ 3ML FLUSH IVF SCH ×3 (05:14→22:00)
[2023-02-23] MEDS: THEOPHYLLINE ANHYDROUS 80 MG/15 ML 120ML PO SCH (05:15)
[2023-02-23] MEDS: DOCUSATE SODIUM 100MG CAPSULE PO SCH (08:40)
[2023-02-23] MEDS: CARBAMAZEPINE 200MG TABLET PO SCH ×2 (08:41→20:38)
[2023-02-23] MEDS: GUAIFENESIN 600MG ER TABLET PO SCH ×2 (08:41→20:38)
[2023-02-23] MEDS: PANTOPRAZOLE 40MG DR TABLET PO SCH ×2 (08:41→17:06)
[2023-02-23] MEDS: TAMSULOSIN HCL 0.4MG SR CAPSULE PO SCH (08:41)
[2023-02-23] MEDS: LISINOPRIL 2.5MG TABLET PO SCH (08:41)
[2023-02-23] MEDS: FUROSEMIDE 40MG TABLET PO SCH ×2 (08:41→17:07)
[2023-02-23] MEDS ORDERED: FUROSEMIDE 40MG/4ML VIAL IVP NR (11:15)
[2023-02-23] MEDS: MONTELUKAST SODIUM 10MG TABLET PO SCH (17:06)
[2023-02-23] MEDS: ENOXAPARIN 40MG/0.4ML SYR SUBCUT SCH (17:07)
[2023-02-23] MEDS: ATORVASTATIN CALCIUM 40MG TABLET PO SCH (20:38)
[2023-02-24] VITALS (9 sets, daily range): BP systolic 109–134; BP diastolic 49–69; PULSE 78–91; RESP 17–22; TEMP 97.1–98.5
[2023-02-24] MEDS: IPRATROPIUM/ALBUTEROL 0.5-3(2.5)MG/3ML NEB HHN SCH ×3 (01:05→16:26)
[2023-02-24] MEDS: FUROSEMIDE 40MG TABLET PO SCH ×2 (05:53→17:45)
[2023-02-24] MEDS: METHYLPREDNISOLONE SOD SUCC 125MG VIAL IV SCH (05:54)
[2023-02-24] MEDS: SODIUM CHLORIDE 0.9% INJ 3ML FLUSH IVF SCH ×3 (05:54→21:29)
[2023-02-24 06:17] LABS: BASOPHILS % 0.1 % (0.0-2.0); DIFFERENTIAL COMMENT 0; HEMATOCRIT. 21.7 % (42.0-52.0); HEMOGLOBIN. 7.2 g/dL (14.0-18.0); LYMPHOCYTES % 14.4 % (20.0-50.0); MEAN CORPUSCULAR HEMOGLOBIN 33.3 pg (28.0-32.0); MEAN CORPUSCULAR HGB CONC 33.2 g/dL (31.0-37.0); MEAN CORPUSCULAR VOLUME 100.2 fL (80.0-94.0); MEAN PLATELET VOLUME 6.9 fl (7.4-10.4); MONOCYTES % 9.7 % (2.0-8.0); NEUTROPHILS % 75.8 % (40.0-76.0); PLATELET 266 x1000/uL (130-400); RED BLOOD CELL COUNT 2.17 mill/uL (4.7-6.1); RED CELL DISTRIBUTION WIDTH 20.4 % (11.6-14.6); WHITE BLOOD COUNT 7.2 x1000/uL (4.5-11.0)
[2023-02-24 08:00] LABS: CHLORIDE 93 mEq/L (98-107); INDEX HEMOLYSI 1 (1-3); INDEX ICTERIC 1 (1-4); INDEX LIPEMIC 1 (1-3); POTASSIUM 4.3 mEq/L (3.5-5.1); SODIUM 133 mEq/L (136-145)
[2023-02-24 08:05] LABS: CALCIUM 8.6 mg/dL (8.5-10.1); CARBON DIOXIDE 38 mEq/L (21-32); CREATININE 1.3 mg/dL (0.6-1.3); GLUCOSE 237 mg/dL (70-105); UREA NITROGEN BLOOD 29 mg/dL (7-21)
[2023-02-24] MEDS: DOCUSATE SODIUM 100MG CAPSULE PO SCH (09:11)
[2023-02-24] MEDS: GUAIFENESIN 600MG ER TABLET PO SCH ×2 (09:11→20:25)
[2023-02-24] MEDS: CARBAMAZEPINE 200MG TABLET PO SCH ×2 (09:11→20:25)
[2023-02-24] MEDS: TAMSULOSIN HCL 0.4MG SR CAPSULE PO SCH (09:11)
[2023-02-24] MEDS: LISINOPRIL 2.5MG TABLET PO SCH (09:11)
[2023-02-24] MEDS: PANTOPRAZOLE 40MG DR TABLET PO SCH ×2 (09:11→17:45)
[2023-02-24] MEDS ORDERED: FUROSEMIDE 40MG/4ML VIAL IVP PRN (09:45)
[2023-02-24 11:39] LABS: HEMATOCRIT 24.6 % (42.0-52.0)
[2023-02-24] MEDS: ENOXAPARIN 40MG/0.4ML SYR SUBCUT SCH (17:45)
[2023-02-24] MEDS: MONTELUKAST SODIUM 10MG TABLET PO SCH (17:45)
[2023-02-24] MEDS: ATORVASTATIN CALCIUM 40MG TABLET PO SCH (20:25)
[2023-02-24 21:56] LABS: INDEX HEMOLYSI 1 (1-3); INDEX ICTERIC 1 (1-4); INDEX LIPEMIC 1 (1-3)
[2023-02-24 22:00] LABS: IRON 21 ug/dL (50-175); TOTAL IRON BINDING CAPACITY 249 ug/dL (250-450)
[2023-02-25] VITALS (14 sets, daily range): BP systolic 106–137; BP diastolic 46–69; PULSE 80–100; RESP 18–22; TEMP 96.5–99.1; O2SAT 92
[2023-02-25] MEDS ORDERED: IRON SUCROSE COMPLEX 100 MG/5 ML ML IV NR ×2 (00:15→15:00)
[2023-02-25] MEDS: PROMETHAZINE/DEXTROMETHORPHAN 6.25-15MG/5ML BOTTLE 120ML PO PRN (01:24)
[2023-02-25] MEDS: IPRATROPIUM/ALBUTEROL 0.5-3(2.5)MG/3ML NEB HHN SCH ×3 (02:02→17:46)
[2023-02-25] MEDS: FUROSEMIDE 40MG TABLET PO SCH ×2 (05:09→17:09)
[2023-02-25] MEDS: SODIUM CHLORIDE 0.9% INJ 3ML FLUSH IVF SCH ×3 (05:09→20:23)
[2023-02-25] MEDS: SODIUM CHLORIDE 45ML SPRAY NS PRN ×2 (05:33→14:47)
[2023-02-25 07:11] LABS: BASOPHILS % 0.3 % (0.0-2.0); DIFFERENTIAL COMMENT 0; HEMATOCRIT. 22.7 % (42.0-52.0); HEMOGLOBIN. 7.4 g/dL (14.0-18.0); LYMPHOCYTES % 18.4 % (20.0-50.0); MEAN CORPUSCULAR HEMOGLOBIN 32.9 pg (28.0-32.0); MEAN CORPUSCULAR HGB CONC 32.8 g/dL (31.0-37.0); MEAN CORPUSCULAR VOLUME 100.3 fL (80.0-94.0); MONOCYTES % 11.3 % (2.0-8.0); PLATELET 291 x1000/uL (130-400); RED BLOOD CELL COUNT 2.26 mill/uL (4.7-6.1); RED CELL DISTRIBUTION WIDTH 19.6 % (11.6-14.6); WHITE BLOOD COUNT 8.6 x1000/uL (4.5-11.0)
[2023-02-25 08:08] LABS: CHLORIDE 92 mEq/L (98-107); INDEX HEMOLYSI 1 (1-3); INDEX ICTERIC 1 (1-4); INDEX LIPEMIC 1 (1-3); POTASSIUM 4.1 mEq/L (3.5-5.1); SODIUM 133 mEq/L (136-145)
[2023-02-25 08:18] LABS: CALCIUM 8.6 mg/dL (8.5-10.1); CARBON DIOXIDE 39 mEq/L (21-32); CREATININE 1.4 mg/dL (0.6-1.3); GLUCOSE 201 mg/dL (70-105); UREA NITROGEN BLOOD 34 mg/dL (7-21)
[2023-02-25] MEDS: DOCUSATE SODIUM 100MG CAPSULE PO SCH (08:38)
[2023-02-25] MEDS: LISINOPRIL 2.5MG TABLET PO SCH (08:38)
[2023-02-25] MEDS: TAMSULOSIN HCL 0.4MG SR CAPSULE PO SCH (08:38)
[2023-02-25] MEDS: CARBAMAZEPINE 200MG TABLET PO SCH ×2 (08:38→20:23)
[2023-02-25] MEDS: PANTOPRAZOLE 40MG DR TABLET PO SCH ×2 (08:38→17:09)
[2023-02-25] MEDS: GUAIFENESIN 600MG ER TABLET PO SCH ×2 (08:39→20:23)
[2023-02-25 08:49] LABS: TROPONIN I HIGH SENSITIVITY 84 ng/L (<78)
[2023-02-25] MEDS ORDERED: PREDNISONE 20MG TABLET PO SCH (09:00)
[2023-02-25] MEDS: PHENYLEPHRINE HCL 1% 15 ML NASAL SPRAY BOTHNSTRLS SCH ×2 (15:46→20:22)
[2023-02-25] MEDS: MONTELUKAST SODIUM 10MG TABLET PO SCH (17:09)
[2023-02-25] MEDS: ENOXAPARIN 40MG/0.4ML SYR SUBCUT SCH (17:10)
[2023-02-25] MEDS: ATORVASTATIN CALCIUM 40MG TABLET PO SCH (20:22)
[2023-02-25 21:04] LABS: HEMATOCRIT 26.8 % (42.0-52.0); HEMOGLOBIN 8.8 g/dL (14.0-18.0)
[2023-02-26] VITALS: BP_SYST 105; BP_SYST 168; BP_DIAS 46; BP_DIAS 72; PULSE 78; PULSE 80; RESP 20; RESP 24; TEMP 97.2; TEMP 97.6
[2023-02-26] MEDS: PHENYLEPHRINE HCL 1% 15 ML NASAL SPRAY BOTHNSTRLS SCH ×3 (02:00→13:45)
[2023-02-26 04:00] VITALS: BP 130/71; PULSE 84; RESP 20; TEMP 98.2
[2023-02-26] MEDS: SODIUM CHLORIDE 0.9% INJ 3ML FLUSH IVF SCH ×2 (05:29→13:45)
[2023-02-26] MEDS: FUROSEMIDE 40MG TABLET PO SCH (05:29)
[2023-02-26 07:11] LABS: BASOPHILS % 0.4 % (0.0-2.0); EOSINOPHILS % 3.5 % (0.0-5.0); HEMOGLOBIN. 9.1 g/dL (14.0-18.0); LYMPHOCYTES % 16.7 % (20.0-50.0); MEAN CORPUSCULAR HEMOGLOBIN 32.7 pg (28.0-32.0); MEAN CORPUSCULAR HGB CONC 33.6 g/dL (31.0-37.0); MEAN CORPUSCULAR VOLUME 97.3 fL (80.0-94.0); MONOCYTES % 11.6 % (2.0-8.0); NEUTROPHILS % 67.8 % (40.0-76.0); PLATELET 315 x1000/uL (130-400); RED BLOOD CELL COUNT 2.77 mill/uL (4.7-6.1); RED CELL DISTRIBUTION WIDTH 20.4 % (11.6-14.6); WHITE BLOOD COUNT 8.9 x1000/uL (4.5-11.0)
[2023-02-26 07:45] LABS: POTASSIUM 4.1 mEq/L (3.5-5.1)
[2023-02-26 07:58] LABS: CALCIUM 8.5 mg/dL (8.5-10.1); CREATININE 1.4 mg/dL (0.6-1.3)
[2023-02-26] MEDS ORDERED: PREDNISONE 10MG TABLET PO SCH (09:00)
[2023-02-26] MEDS ORDERED: IRON SUCROSE COMPLEX 100 MG/5 ML ML IV SCH (10:00)
[2023-02-26] MEDS: GUAIFENESIN 600MG ER TABLET PO SCH (10:27)
[2023-02-26] MEDS: TAMSULOSIN HCL 0.4MG SR CAPSULE PO SCH (10:27)
[2023-02-26] MEDS: PANTOPRAZOLE 40MG DR TABLET PO SCH (10:27)
[2023-02-26] MEDS: DOCUSATE SODIUM 100MG CAPSULE PO SCH (10:27)
[2023-02-26] MEDS: CARBAMAZEPINE 200MG TABLET PO SCH (10:27)
[2023-02-26] MEDS: SODIUM CHLORIDE 45ML SPRAY NS PRN (10:28)
[2023-02-26] MEDS: LISINOPRIL 2.5MG TABLET PO SCH (10:28)
[2023-02-26 14:19] VITALS: BP 106/48; PULSE 80; TEMP 96.9; O2SAT 97
== END 2023-02-26 15:10 | DRG 291 ==
LOC: ER 15:12 → MICUSO 16:44 → EDBEDREQ 16:47 → EDBEDREQTM 16:47 → 8WST 02-21 13:40
PROVIDERS: ADMIT Internal Medicine; ATTEND Internal Medicine
PROC: 5A09457 Assistance with Respiratory Ventilation, 24-96 Consecutive Hours, Continuous Positive Airway Pressure (ICD-10-PCS; 2023-02-21)
PROC: 30233N1 Transfusion of Nonautologous Red Blood Cells into Peripheral Vein, Percutaneous Approach (ICD-10-PCS; principal; 2023-02-25)
DX: I13.0 Hypertensive heart and chronic kidney disease with heart failure and stage 1 through stage 4 chronic kidney disease, or unspecified chronic kidney disease (principal); I50.23 Acute on chronic systolic (congestive) heart failure; J96.01 Acute respiratory failure with hypoxia; J44.1 Chronic obstructive pulmonary disease with (acute) exacerbation; E46 Unspecified protein-calorie malnutrition; E87.29 Other acidosis; Z68.1 Body mass index [BMI] 19.9 or less, adult; C61 Malignant neoplasm of prostate; G50.0 Trigeminal neuralgia; E61.1 Iron deficiency; Z66 Do not resuscitate; D53.9 Nutritional anemia, unspecified; E88.09 Other disorders of plasma-protein metabolism, not elsewhere classified; F17.210 Nicotine dependence, cigarettes, uncomplicated; N18.9 Chronic kidney disease, unspecified; I07.1 Rheumatic tricuspid insufficiency; I73.9 Peripheral vascular disease, unspecified; I89.0 Lymphedema, not elsewhere classified; K21.9 Gastro-esophageal reflux disease without esophagitis; Z85.46 Personal history of malignant neoplasm of prostate; Z90.79 Acquired absence of other genital organ(s); Z91.041 Radiographic dye allergy status; Z88.8 Allergy status to other drugs, medicaments and biological substances; Z91.040 Latex allergy status
CPT/HCPCS: 36415; 36600; 71045; 80048; 80053; 82375; 82805; 82962; 83540; 83550; 83605; 83735; 83880; 84443; 84484; 85014; 85018; 85025; 86850; 86900; 86920; 93005; 94640; 94660; 94664; 97110; 97162; 97530; 99291; J1650; J1940; J2930; J7512; P9016